=== PATIENT | female | born 1955 | race Caucasian/White ===

== ENCOUNTER 2016-08-14 13:04 | Outpatient (CLI) | payer MEDICARE, MEDICAID | END 2016-08-14 13:05 | disposition home or self-care (01) | DX: I10 Essential (primary) hypertension (principal); K59.00 Constipation, unspecified ==

== ENCOUNTER 2016-08-18 12:59 | Outpatient (CLI) | payer MEDICARE, MEDICAID | END 2016-08-18 13:00 | disposition home or self-care (01) | DX: Z12.11 Encounter for screening for malignant neoplasm of colon (principal) ==

== ENCOUNTER 2016-09-12 11:17 | Outpatient (CLI) | payer MEDICARE, MEDICAID | END 2016-09-12 11:18 | disposition home or self-care (01) | DX: R06.02 Shortness of breath (principal); R06.2 Wheezing; R05 Cough; R09.89 Other specified symptoms and signs involving the circulatory and respiratory systems ==

== ENCOUNTER 2016-09-25 13:29 | Outpatient (CLI) | payer MEDICARE, MEDICAID | END 2016-09-25 13:30 | disposition home or self-care (01) | DX: E04.2 Nontoxic multinodular goiter (principal) ==

== ENCOUNTER 2016-09-25 14:20 | Outpatient (CLI) | payer MEDICARE, MEDICAID | END 2016-09-25 14:21 | disposition home or self-care (01) | DX: Z12.31 Encounter for screening mammogram for malignant neoplasm of breast (principal); Z80.3 Family history of malignant neoplasm of breast ==

== ENCOUNTER 2017-03-08 17:05 | Emergency (ER) | payer MEDICARE, MEDICAID ==
[2017-03-08] MEDS ORDERED: HYDROcod/ACETAM 5/325 MG TABLET PO STA (17:39)
--- NOTE | 2017-03-08 17:41 | ED Physician Documentation ---
PD HPI ABD PAIN - Stated complaint Stated Complaint: ABD PAIN, L ARM PAIN - Chief complaint Chief Complaint: Abd Pain - History obtained from History obtained from: Patient, Family - History of Present Illness Timing - onset: Other (61-year-old woman referred from clinic for complaints of several months worth of left arm pain located in the left bicep without specific trauma, hurts to raise her arms. Also upper abdominal pain for several weeks, without specific pattern, does not seem to be related to eating. It does not radiate. She has been nauseous at times with it. No changes in bowel movements. 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 - Present Medications Home Medications: Ambulatory Orders Medication Instructions Recorded Confirmed Levothyroxine [Synthroid] 25 mcg PO QDAC 09/11/16 Lisinopril 10 mg PO DAILY 09/11/16 - Allergies Allergies/Adverse Reactions: Allergies Allergy/AdvReac Type Severity Reaction Status Date / Time No Known Drug Allergies Allergy Verified 03/08/17 17:23 - Social History Does the pt smoke?: Yes Smoking Status: Current every day smoker Does the pt drink ETOH?: Yes Does the pt have substance abuse?: No - Immunizations Immunizations are current?: Yes PD ED PE NORMAL - Vitals Vital signs reviewed: Yes - General General: Alert and oriented X 3, No acute distress - HEENT HEENT: PERRL, EOMI - Neck Neck: Supple, no meningeal sign, No bony TTP - Cardiac Cardiac: RRR, No murmur - Respiratory Respiratory: No respiratory distress, Clear bilaterally - Abdomen Abdomen: Other (Mild upper abdominal tenderness that does not lateralize, negative Vidal sign, no surgical signs.) - Back Back: No CVA TTP, No spinal TTP - Derm Derm: Normal color, Warm and dry - Extremities Extremities: Other (Left arm and bicep are nontender, full range of motion, normal pulses.) - Neuro Neuro: Alert and oriented X 3, Normal speech - Psych Psych: Normal mood, Normal affect Results - Vitals Vitals: Vital Signs - 24 hr 03/08/17 17:15 Temperature 37.0 C Heart Rate 74 Respiratory 20 Rate Blood Pressure 192/95 H O2 Saturation 94 Oxygen O2 Source Room air - Labs Labs: Laboratory Tests 03/08/17 03/08/17 03/08/17 17:52 17:52 18:32 WBC 9.5 RBC 5.25 Hgb 16.4 H Hct 48.5 H MCV 92.4 MCH 31.3 H MCHC 33.8 RDW 13.7 Plt Count 289 MPV 8.3 Neut # 5.6 Lymph # 2.7 [place] # 0.8 Eos # 0.3 Baso # 0.1 Absolute Nucleated RBC 0.02 Nucleated RBCs 0.2 Sodium 139 Potassium 3.8 Chloride 103 Carbon Dioxide 29 Anion Gap 7.0 BUN 10 Creatinine 0.7 Estimated GFR (MDRD) 86 L Glucose 98 Calcium 9.3 Total Bilirubin 0.3 AST 14 ALT 15 Alkaline Phosphatase 75 Total Protein 7.8 Albumin 4.2 Globulin 3.6 Albumin/Globulin Ratio 1.2 Lipase 28 Urine Color YELLOW Urine Clarity CLEAR Urine pH 7.0 Ur Specific [place] 1.010 Urine Protein NEGATIVE Urine Glucose (UA) NEGATIVE Urine Ketones NEGATIVE Urine Occult Blood NEGATIVE Urine Nitrite NEGATIVE Urine Bilirubin NEGATIVE Urine Urobilinogen 0.2 (NORMAL) Ur Leukocyte Esterase NEGATIVE Ur Microscopic Review NOT INDICATED Urine Culture Comments NOT INDICATED - Rads (name of study) LUE duplex Radiology: Prelim report reviewed CT A/P Radiology: EMP read contemporaneously (4.5cm AAA) PD MEDICAL DECISION MAKING - ED course ED course: 61-year-old woman presents referred by her doctor's office for chronic complaints of leftArm pain and abdominal pain. Labs are unremarkable. She is found to have a stable 4.5 cm abdominal aortic aneurysm and follow-up was advised. Departure - Departure Disposition: 01 Home, Self Care Clinical Impression: Left upper arm pain Abdominal pain Qualifiers: Abdominal location: generalized Qualified Code(s): R10.84 - Generalized abdominal pain AAA (abdominal aortic aneurysm) Qualifiers: Presence of rupture: without rupture Qualified Code(s): I71.4 - Abdominal aortic aneurysm, without rupture Condition: Good Record reviewed to determine appropriate education?: Yes Instructions: ED Aneurysm Abdominal Aortic Stable, Abdominal Pain Comments: Call your physician's office tomorrow for blood pressure recheck and likely referral to a vascular surgeon for your abdominal aortic aneurysm. Your blood pressure was elevated today on check into the emergency department. This does not mean that you have hypertension, it is a common phenomenon to come to the emergency department and have elevated blood pressure. I recommend that she see her primary care physician within the week to have it rechecked when you are feeling better.
[2017-03-08] MEDS ORDERED: HYDROcod/ACETAM 5/325 MG TABLET ONE (17:53)
[2017-03-08 18:00] LABS: BASOPHILS # (AUTO) 0.1 10^3/uL (0.0-0.1); BASOPHILS % (AUTO) 1.2 %; EOSINOPHILS # (AUTO) 0.3 10^3/uL (0.0-0.7); EOSINOPHILS % (AUTO) 2.7 %; HCT - HEMATOCRIT 48.5 % (37.0-47.0); HGB - HEMOGLOBIN 16.4 g/dL (12.0-16.0); LYMPHOCYTES # (AUTO) 2.7 10^3/uL (1.5-3.5); LYMPHOCYTES % (AUTO) 28.7 %; MEAN CORPUSCULAR HEMOGLOBIN 31.3 pg (27.0-31.0); MEAN CORPUSCULAR HGB CONC 33.8 g/dL (32.0-36.0); MEAN CORPUSCULAR VOLUME 92.4 fL (81.0-99.0); MEAN PLATELET VOLUME 8.3 fL (7.9-10.8); MONOCYTES # (AUTO) 0.8 10^3/uL (0.0-1.0); MONOCYTES % (AUTO) 8.5 %; NEUTROPHILS # (AUTO) 5.6 10^3/uL (1.5-6.6); NEUTROPHILS % (AUTO) 58.9 %; NUCLEATED RED BLOOD CELLS AUTO 0.2 /100WBC; RED BLOOD COUNT 5.25 10^6/uL (4.20-5.40); RED CELL DISTRIBUTION WIDTH 13.7 % (12.0-15.0); UNCORRECTED WHITE BLOOD COUNT 9.5 x10^3/uL; WHITE BLOOD COUNT 9.5 x10^3/uL (4.8-10.8)
[2017-03-08 18:13] LABS: ALBUMIN/GLOBULIN RATIO 1.2 (1.0-2.2); BILIRUBIN,TOTAL 0.3 mg/dL (0.2-1.0); CALCIUM 9.3 mg/dL (8.5-10.3); CREATININE 0.7 mg/dL (0.4-1.0); POTASSIUM 3.8 mmol/L (3.5-5.0); TOTAL PROTEIN 7.8 g/dL (6.7-8.2)
[2017-03-08] MEDS ORDERED: IOPAMIDOL-300 100 ML VIAL IVP ONE (18:54)
[2017-03-08 18:59] LABS: BILIRUBIN,URINE NEGATIVE (NEGATIVE)
[2017-03-08 19:00] LABS: UA CHARGE (STRIP ONLY) YES; UR CULTURE IF IND NOT INDICATED
--- NOTE | 2017-03-08 19:12 | CT Preliminary Report ---
Exam: CT Abdomen/Pelvis W/ IMPRESSION: 1. No definite acute disease. 2. Distal abdominal aortic aneurysm measuring 4.5 cm. 3. Splenic varices, of uncertain significance. Number for minimal diverticulosis. [facility] SITE ID: [id number]
--- NOTE | 2017-03-08 19:14 | CT Report ---
EXAM: CT ABDOMEN AND PELVIS EXAM DATE: 03/08/2017 06:57 PM. CLINICAL HISTORY: Upper abdominal pain. COMPARISONS: None. TECHNIQUE: Routine helical CT imaging was performed through the abdomen and pelvis. IV contrast: 100 cc Isovue-300. Enteric contrast: No. Reconstructions: Coronal and sagittal. In accordance with CT protocol optimization, one or more of the following dose reduction techniques w ere utilized for this exam: automated exposure control, adjustment of mA and/or KV based on patient s ize, or use of iterative reconstructive technique. FINDINGS: Lung Bases: Unremarkable. Liver: Normal. No masses. Gallbladder/Bile Ducts: Unremarkable. Spleen: Normal. Splenic varices. Pancreas: Normal. Adrenal Glands: Normal. Kidneys: Normal. No masses or hydronephrosis. Peritoneal Cavity/Bowel: Minimal colonic diverticulosis. No free fluid, free air or adenopathy. No ma sses or acute inflammatory process. The appendix is well visualized and normal. Pelvic Organs: Decompressed urinary bladder. Absent uterus. Vasculature: Distal abdominal aortic aneurysm measuring 4.5 cm in maximum diameter and extending over about 8 cm in length, infrarenal and not involving the bifurcation. No evidence of rupture or dissec tion. Otherwise unremarkable. Bones: No significant abnormality. Other: None. IMPRESSION: 1. No definite acute disease. 2. Distal abdominal aortic aneurysm measuring 4.5 cm. 3. Splenic varices, of uncertain significance. Number for minimal diverticulosis. [facility] Referring Provider Line: [phone] SITE ID: [id number]
--- NOTE | 2017-03-08 19:47 | Ultrasound Preliminary Report ---
Exam: US Duplex Ext Veins Left IMPRESSION: No evidence for deep vein thrombosis. [facility] SITE ID: [id number]
--- NOTE | 2017-03-08 19:49 | Ultrasound Report ---
EXAM: LEFT UPPER EXTREMITY VENOUS ULTRASOUND EXAM DATE: 03/08/2017 07:34 PM. CLINICAL HISTORY: L arm pain. COMPARISON: None. TECHNIQUE: Real-time sonographic vascular imaging was performed by the garage hand through the upper extremity utilizing both color-flow and Doppler spectral analysis. Multiple shipping services sales representative static el ges were saved for review. FINDINGS: Internal Jugular Vein (IJV): Normal. Subclavian Vein (SCV): Normal. Axillary Vein : Normal. Cephalic Vein (superficial vein): Normal. Basilic Vein (superficial vein): Normal. Brachial Vein: Normal. Contralateral Side: Subclavian Vein: Normal. Other: Vessels are difficult to compress secondary to body habitus. IMPRESSION: No evidence for deep vein thrombosis. [facility] Referring Provider Line: [phone] SITE ID: [id number]
[2017-03-08 20:09] VITALS: BP 158/91
== END 2017-03-08 20:09 | disposition home or self-care (01) ==
LOC: ED 17:05
DX: R10.84 Generalized abdominal pain (principal); M79.602 Pain in left arm; I71.4 Abdominal aortic aneurysm, without rupture; I10 Essential (primary) hypertension; E78.00 Pure hypercholesterolemia, unspecified; F17.200 Nicotine dependence, unspecified, uncomplicated
CPT/HCPCS: 36415; 74177; 80053; 81003; 83690; 85025; 93971; 99283; 99284; A9270; Q9967; 81001; 87086

== ENCOUNTER 2017-05-03 13:10 | Outpatient (CLI) | payer MEDICARE, MEDICAID ==
[2017-05-03 20:28] LABS: THYROID STIMULATING HORMONE 6.71 uIU/mL (0.34-5.60)
== END 2017-05-03 13:11 | disposition home or self-care (01) ==
LOC: LAB.N 13:10
PROVIDERS: ATTEND Nurse Practitioner Gerontology
DX: E03.9 Hypothyroidism, unspecified (principal)
CPT/HCPCS: 36415; 84439; 84443

== ENCOUNTER 2017-05-06 11:36 | Outpatient (CLI) | payer MEDICARE, MEDICAID ==
--- NOTE | 2017-05-07 07:49 | Ultrasound Report ---
EXAM: THYROID ULTRASOUND EXAM DATE: 05/06/2017 12:07 PM. CLINICAL HISTORY: Multiple thyroid nodules, hypothyroidism. COMPARISON: 09/25/2016. TECHNIQUE: Real-time sonographic imaging of the thyroid was performed by the insurance sales associate. Multiple re presentative static images were saved for review. FINDINGS: THYROID GLAND: Right Lobe: 6.4 x 2.7 x 2 cm, volume 18.4 cc. Heterogeneous background echotexture. Right Lobe Nodules: There are again multiple ill-defined echoic nodules, the previously reported thyr oid nodule in the midpole measured 1 x 0.7 x 0.8 cm, previously 1 x 0.8 x 0.8 cm. Left Lobe: 5.6 x 2.3 x 2.3 cm, volume 15.4 cc. Heterogeneous background echotexture. Left Lobe Nodules: Multiple ill-defined small echoic nodules again noted, the previously measured thy roid nodule in the lower pole of 0.7 x 0.7 x 0.6 cm, currently measured 0.4 x 0.3 x 0.3 cm. Isthmus: 0.35 cm AP. Isthmic Nodules: In the right paramidline area, there is a solid vascular hypoechoic nodule, 1.8 x 0. 5 x 1.3 cm, previously 1.8 x 0.6 x 1.5 cm. LYMPH NODES: No adenopathy demonstrated in the central or lateral compartment. IMPRESSION: Minimal interval change of the diffuse heterogeneous echogenicity of the thyroid gland with multiple solid nodules, the dominant thyroid nodule located in evaluation as has a sonographic feature of low suspicion for malignancy; given the vascularity and maximal dimension of 1.8 cm of the dominant nodul e, ultrasound-guided fine-needle aspiration for tissue diagnosis is considered. Management recommendations are based on 2015 [place] [employer] Management Guidelines for A dult Patients with Thyroid Nodules and Differentiated Thyroid Cancer. [facility] Referring Provider Line: [phone] SITE ID: [id number]
== END 2017-05-06 11:37 | disposition home or self-care (01) ==
LOC: DI 11:36
PROVIDERS: ATTEND Nurse Practitioner Gerontology
DX: E04.2 Nontoxic multinodular goiter (principal); E03.9 Hypothyroidism, unspecified
CPT/HCPCS: 76536

== ENCOUNTER 2017-06-25 13:20 | Outpatient (CLI) | payer MEDICARE, MEDICAID ==
[2017-06-25] MEDS ORDERED: BUFFERED LIDOCAINE 10 ML SYRINGE IU ONE (16:51)
--- NOTE | 2017-06-26 10:51 | Ultrasound Report ---
THYROID FNA UNDER ULTRASOUND GUIDANCE: 06/25/2017 HISTORY: Multinodular gland with dominant 1.7 x 1.5 x 0.5 cm solid vascular nodule in the thyroid is thmus. Informed consent is obtained from the patient. Using ultrasound guidance, the dominant isthmus thyro id nodule is marked. Using sterile technique and 1% lidocaine as a local anesthetic, a 25-gauge need le is used to obtained four separate FNA samples from the nodule. Ultrasound documents the presence of the needle within the nodule on all four passes. The patient tolerated the procedure well. IMPRESSION: SUCCESSFUL THYROID FNA USING ULTRASOUND GUIDANCE. JOB #: [id number] EXT JOB #:[id number]
[2017-06-28 20:56] VITALS: BP 164/94
== END 2017-06-25 13:21 | disposition home or self-care (01) ==
LOC: DI 13:20
PROVIDERS: ATTEND Nurse Practitioner Gerontology
DX: E04.2 Nontoxic multinodular goiter (principal)
CPT/HCPCS: 10022; 76942

== ENCOUNTER 2017-07-31 14:00 | Outpatient (CLI) | payer MEDICARE, MEDICAID | END 2017-07-31 14:01 | disposition home or self-care (01) | LOC: LAB.N 14:00 | PROVIDERS: ATTEND Nurse Practitioner Gerontology | DX: E03.9 Hypothyroidism, unspecified (principal) | CPT/HCPCS: 36415; 84443 ==

== ENCOUNTER 2017-08-24 11:17 | Outpatient (CLI) | payer MEDICARE, MEDICAID ==
--- NOTE | 2017-08-24 14:29 | Ultrasound Report ---
DATE OF SERVICE: 08/24/2017 LIMITED RETROPERITONEAL ULTRASOUND: 08/24/2017 CLINICAL INDICATION: Aneurysm followup. COMPARISON: CT of 03/08/2017. TECHNIQUE: Real-time sonographic imaging was performed by the ground host/hostess through the aorta. Multiple sales representative printing static images were saved for review. FINDINGS: The abdominal aorta measures 2.7 cm proximally, and 2.7 cm in the mid portion. Distal aneurysmal dilatation is again seen, now measuring 4.8 x 4.0 cm ( previously 4.5 x 4.0 cm). The iliacs are normal in caliber. No free fluid is present. IMPRESSION: NO SIGNIFICANT INTERVAL CHANGE IN THE ABDOMINAL AORTIC ANEURYSM. TD: 08/24/2017 14:28 SUMAN
== END 2017-08-24 11:18 | disposition home or self-care (01) ==
LOC: DI 11:17
PROVIDERS: ATTEND Nurse Practitioner Gerontology
DX: I71.4 Abdominal aortic aneurysm, without rupture (principal)
CPT/HCPCS: 76775

== ENCOUNTER 2017-12-14 09:07 | Outpatient (CLI) | payer MEDICARE, MEDICAID ==
--- NOTE | 2017-12-14 12:39 | MRI Report ---
EXAM: LEFT KNEE MRI WITHOUT CONTRAST EXAM DATE: 12/14/2017 09:53 AM. CLINICAL HISTORY: LEFT KNEE MEDIAL MENISCUS TEAR. COMPARISON: Radiograph 12/06/2017. TECHNIQUE: Multiplanar, multisequence T1-weighted and fluid-sensitive sequences of the knee without c ontrast. Other: None. FINDINGS: Cruciate ligaments: The anterior and posterior cruciate ligaments appear intact. Medial meniscus: Intact. No tear is identified. Lateral meniscus: Intact. No tear is identified. Collateral limits: The medial and fibular collateral ligament appear intact. Bones and articular surfaces: Areas of moderate cartilage thinning and fissuring in the patellofemora l compartment. Mild cartilage thinning and surface irregularity in the medial compartment. Moderate-s ized joint effusion. Tiny marginal osteophyte formation at the medial and patellofemoral compartments . Extensor mechanism: The patellar tendon and quadriceps insertion appear intact. IMPRESSION: 1. Mild medial and patellofemoral compartment osteoarthritis. 2. Moderate size joint effusion. [facility] Referring Provider Line: [phone] SITE ID: [id number]
[2017-12-14] MEDS ORDERED: GADOBUTROL 7.5 MMOL/7.5 ML VIAL IVP ONE (13:19)
== END 2017-12-14 09:08 | disposition home or self-care (01) ==
LOC: DI 09:07
PROVIDERS: ATTEND Orthopaedic Surgery
DX: M17.12 Unilateral primary osteoarthritis, left knee (principal); M25.462 Effusion, left knee

== ENCOUNTER 2018-01-29 11:10 | Day surgery (SDC) | payer MEDICARE, MEDICAID ==
[~2018-01-29 11:10] MED LIST: LIDO GARGLE 30 ML BOTTLE ONE; LIDO GARGLE 30 ML BOTTLE PO ONE
[2018-01-29] MEDS ORDERED: LACTATED RINGERS 1,000 ML IV ONE ×4 (11:33→13:00)
[2018-01-29] MEDS ORDERED: MIDAZOLAM 2 MG/2 ML VIAL IVP ONE (12:27)
[2018-01-29] MEDS ORDERED: GLUCAGON 1 MG/ML VIAL IM ONE (12:27)
[2018-01-29] MEDS ORDERED: fentaNYL 250 MCG/5 ML VIAL IVP ONE (12:27)
[2018-01-29] MEDS ORDERED: LIDO GARGLE 30 ML BOTTLE PO ONE (12:32)
[2018-01-29] MEDS ORDERED: WATER FOR INJECTION,STERILE 10 ML ONE (13:06)
[2018-01-29 13:43] VITALS: BP 126/58
== END 2018-01-29 11:11 | disposition home or self-care (01) ==
LOC: SDS 11:10
PROVIDERS: ATTEND Surgery
PROC: 0DB28ZX Excision of Middle Esophagus, Via Natural or Artificial Opening Endoscopic, Diagnostic (ICD-10-PCS; 2018-01-29)
PROC: 0DBM8ZZ Excision of Descending Colon, Via Natural or Artificial Opening Endoscopic (ICD-10-PCS; 2018-01-29)
PROC: 0DBL8ZZ Excision of Transverse Colon, Via Natural or Artificial Opening Endoscopic (ICD-10-PCS; 2018-01-29)
PROC: 0DBN8ZZ Excision of Sigmoid Colon, Via Natural or Artificial Opening Endoscopic (ICD-10-PCS; 2018-01-29)
PROC: 0DB98ZX Excision of Duodenum, Via Natural or Artificial Opening Endoscopic, Diagnostic (ICD-10-PCS; principal; 2018-01-29 12:30)
PROC: 0DB78ZX Excision of Stomach, Pylorus, Via Natural or Artificial Opening Endoscopic, Diagnostic (ICD-10-PCS; 2018-01-29 12:30)
DX: R19.5 Other fecal abnormalities (principal); R10.10 Upper abdominal pain, unspecified; R19.05 Periumbilic swelling, mass or lump; K59.00 Constipation, unspecified; K25.9 Gastric ulcer, unspecified as acute or chronic, without hemorrhage or perforation; K22.9 Disease of esophagus, unspecified; K31.9 Disease of stomach and duodenum, unspecified; D12.3 Benign neoplasm of transverse colon; K63.5 Polyp of colon; K57.30 Diverticulosis of large intestine without perforation or abscess without bleeding; K64.4 Residual hemorrhoidal skin tags; I10 Essential (primary) hypertension; F17.290 Nicotine dependence, other tobacco product, uncomplicated
CPT/HCPCS: 43239; 45384; A9270; J3010; J7120

== ENCOUNTER 2018-02-14 09:34 | Outpatient (CLI) | payer MEDICARE, MEDICAID ==
--- NOTE | 2018-02-14 09:56 | XRAY Report ---
Procedure Date: 02/14/2018 Accession Number: [id number] / [id number] Procedure: XRN - Chest 2 View X-Ray CPT Code: 44446 FULL RESULT: EXAM: Chest 2 View X-Ray DATE: 02/14/2018 9:48 AM CLINICAL HISTORY: SOB COMPARISON: 09/12/2016. TECHNIQUE: 2 views. FINDINGS: Interval increase in bibasilar hazy opacification without lobar consolidation or significant pleural effusion on the lateral radiograph. This likely represents a component of edema. Question underlying interstitial basilar predominant pulmonary disease. Evidence of prior granulomatous disease is again seen. The cardiomediastinal silhouette is stable, nonenlarged. No pneumothorax or pleural effusion IMPRESSION: Increased bibasilar opacities as described. These are felt to represent interval development of mild interstitial edema, possible background of chronic interstitial lung disease. [facility]
== END 2018-02-14 09:35 | disposition home or self-care (01) ==
LOC: DI.N 09:34
PROVIDERS: ATTEND Nurse Practitioner Gerontology
DX: R91.8 Other nonspecific abnormal finding of lung field (principal)
CPT/HCPCS: 36415; 71046; 85379

== ENCOUNTER 2018-02-14 10:10 | Outpatient (CLI) | payer MEDICARE, MEDICAID | END 2018-02-14 10:11 | LOC: LAB.N 10:10 | PROVIDERS: ATTEND Nurse Practitioner Gerontology | DX: R06.02 Shortness of breath (principal) | CPT/HCPCS: 36415; 85379 ==

== ENCOUNTER 2018-02-15 15:58 | Outpatient (CLI) | payer MEDICARE, MEDICAID | END 2018-02-15 15:59 | disposition critical access hospital (66) | LOC: EMS 15:58 | PROVIDERS: ATTEND Surgery | DX: R06.00 Dyspnea, unspecified (principal) | CPT/HCPCS: A0425; A0427 ==

== ENCOUNTER 2018-02-15 16:20 | Inpatient (IN) | payer MEDICARE, MEDICAID ==
[2018-02-15] MEDS ORDERED: ALBUTEROL NEB 2.5 MG/3 ML INH STA (16:54)
[2018-02-15] MEDS ORDERED: AZITHROMYCIN INJ 500 MG in SODIUM CHLORIDE 0.9% 250 ML IV STA (16:54)
[2018-02-15] MEDS ORDERED: cefTRIAXone 1 GM in SODIUM CHLORIDE 0.9% MINIBAG 100 ML IV STA (16:54)
--- NOTE | 2018-02-15 16:59 | ED Physician Documentation ---
PD HPI DYSPNEA - Stated complaint Stated Complaint: SOA - Chief complaint Chief Complaint: Resp - History obtained from History obtained from: Patient, EMS - History of Present Illness Timing - onset: Other (This is a 62-year-old woman without a formal diagnosis of COPD but has been mentioned by physicians in the past. She has been sick for about 10 days with productive cough green sputum and shortness of breath which has been progressive despite being on steroids and antibiotics. She was on a prednisone taper which was upped again today yesterday and she has been on Zithromax since yesterday and also an inhaled steroid and Ventolin. 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 - Present Medications Home Medications: Ambulatory Orders Medication Instructions Recorded Confirmed Acetaminophen [Tylenol] 325 mg PO TID PRN 01/28/18 01/29/18 Levothyroxine Sodium 50 mcg PO DAILY 01/28/18 01/29/18 Lisinopril 20 mg PO DAILY 01/28/18 01/29/18 Nystatin 100,000 units TOP DAILY 01/28/18 01/29/18 Albuterol Sulf [Ventolin Hfa 02/15/18 Inhaler] Azithromycin 02/15/18 predniSONE [Prednisone] 02/15/18 - Allergies Allergies/Adverse Reactions: Allergies Allergy/AdvReac Type Severity Reaction Status Date / Time methylprednisolone Allergy critical Verified 02/15/18 16:40 - Social History Does the pt smoke?: Yes Smoking Status: Former smoker Does the pt drink ETOH?: Yes Does the pt have substance abuse?: No - Family History Family history: reports: Non contributory - Immunizations Immunizations are current?: Yes PD ED PE NORMAL - Vitals Vital signs reviewed: Yes - General General: Alert and oriented X 3, Other (Labored pursed lip breathing) - HEENT HEENT: PERRL, EOMI - Neck Neck: Supple, no meningeal sign, No bony TTP - Cardiac Cardiac: RRR, No murmur - Respiratory Respiratory: Other (Labored pursed lip breathing and tachypnea, I took her off the oxygen in the room and she went down to 88% on room air. She is diffusely wheezy and rhonchorous throughout.) - Abdomen Abdomen: Soft, Non tender - Back Back: No CVA TTP, No spinal TTP - Derm Derm: Normal color, Warm and dry - Extremities Extremities: No edema, No calf tenderness / cord - Neuro Neuro: Alert and oriented X 3, Normal speech Results - Vitals Vitals: Vital Signs - 24 hr 02/15/18 02/15/18 16:21 16:30 Heart Rate 96 98 Respiratory 20 20 Rate Blood Pressure 168/116 H 164/89 H O2 Saturation 93 93 Oxygen O2 Source Nasal cannula PD MEDICAL DECISION MAKING - ED course ED course: 8-year-old woman with apparent COPD exacerbation, chest x-ray from yesterday reviewed, mild bibasilar opacities without focal pneumonia. She is hypoxemic here and will need to be admitted for further evaluation and treatment. She received Solu-Medrol prior to arrival and a DuoNeb in route. This is despite being listed as having an allergy to Solu-Medrol, but she had no ill effects. Call the hospitalist for admission at 4:58 PM. - Sepsis Event Vital Signs: Vital Signs - 24 hr 02/15/18 02/15/18 16:21 16:30 Heart Rate 96 98 Respiratory 20 20 Rate Blood Pressure 168/116 H 164/89 H O2 Saturation 93 93 Oxygen O2 Source Nasal cannula Departure - Departure Disposition: 66 [facility] DC/Xfer Clinical Impression: COPD exacerbation, Hypoxemia Condition: Stable
[2018-02-15] MEDS ORDERED: ONDANSETRON ODT 4 MG TABLET TL PRN (17:14)
[2018-02-15] MEDS ORDERED: ONDANSETRON 4 MG/2 ML VIAL IVP PRN (17:14)
[2018-02-15 17:17] LABS: BASOPHILS # (AUTO) 0.1 10^3/uL (0.0-0.1); BASOPHILS % (AUTO) 0.7 %; EOSINOPHILS % (AUTO) 0.2 %; HGB - HEMOGLOBIN 16.5 g/dL (12.0-16.0); LYMPHOCYTES # (AUTO) 0.9 10^3/uL (1.5-3.5); LYMPHOCYTES % (AUTO) 7.3 %; MEAN CORPUSCULAR HEMOGLOBIN 30.9 pg (27.0-31.0); MEAN CORPUSCULAR HGB CONC 33.5 g/dL (32.0-36.0); MEAN PLATELET VOLUME 7.9 fL (7.9-10.8); MONOCYTES # (AUTO) 0.1 10^3/uL (0.0-1.0); MONOCYTES % (AUTO) 1.1 %; NEUTROPHILS # (AUTO) 11.4 10^3/uL (1.5-6.6); NEUTROPHILS % (AUTO) 90.7 %; PLT - PLATELET COUNT 353 10^3/uL (130-450); RED BLOOD COUNT 5.36 10^6/uL (4.20-5.40); RED CELL DISTRIBUTION WIDTH 14.3 % (12.0-15.0); WHITE BLOOD COUNT 12.5 x10^3/uL (4.8-10.8)
[2018-02-15] MEDS ORDERED: NYSTATIN CREAM 15 GM TUBE TOP PRN (17:18)
[2018-02-15 17:29] LABS: ALBUMIN 3.9 g/dL (3.2-5.5); ALBUMIN/GLOBULIN RATIO 0.9 (1.0-2.2); BILIRUBIN,TOTAL 0.6 mg/dL (0.2-1.0); CALCIUM 9.4 mg/dL (8.5-10.3); CREATININE 0.6 mg/dL (0.4-1.0); TOTAL PROTEIN 8.2 g/dL (6.7-8.2)
[2018-02-15] MEDS: methylPREDNISolone SUCCINATE 125 MG/2 ML VIAL IVP SCH ×2 (18:24→23:42)
[2018-02-15] MEDS: SODIUM CHLORIDE FLUSH 0.9% 10 ML SYRINGE IVP PRN ×2 (18:24→19:29)
[2018-02-15] MEDS: oxyCODONE 5 MG TABLET PO PRN (18:29)
[2018-02-15] MEDS ORDERED: SODIUM CHLORIDE 0.9% 500 ML IV ONE (20:56)
[2018-02-15 21:26] LABS: ABG HCO3 22.3 mmol/L (22.0-26.0); ABG PCO2 32 mmHg (34-45); ABG PH 7.46 (7.35-7.45); ABG PO2 118 mmHg (80-100)
[2018-02-15 21:27] LABS: ABG BASE EXCESS -0.6 mmol/L (-2.0-3.0); ABG OXYGEN SATURATION 99 % (94-98); ABG TCO2 23.2 MMOL/L (21.0-29.0); ALLEN TEST POSITIVE
[2018-02-15] MEDS: IPRATROPIUM/ALBUTEROL 3 ML NEB INH SCH (22:10)
[2018-02-15] MEDS: BUDESONIDE 0.5 MG/2 ML NEB INH SCH (22:10)
[2018-02-15] MEDS: SODIUM CHLORIDE FLUSH 0.9% 10 ML SYRINGE IVP SCH (23:42)
[2018-02-15] MEDS: ACETAMINOPHEN 325 MG TABLET PO PRN (23:51)
[2018-02-16] MEDS ORDERED: IOPAMIDOL-300 100 ML VIAL ONE (01:15)
[2018-02-16] MEDS ORDERED: IOPAMIDOL-300 100 ML VIAL IVP ONE (01:21)
[2018-02-16] MEDS ORDERED: SODIUM CHLORIDE 0.9% 1,000 ML IV SCH (02:00)
--- NOTE | 2018-02-16 02:00 | CT Report ---
Procedure Date: 02/16/2018 Accession Number: [id number] / [id number] Procedure: CT - Chest Angio (PE) CPT Code: FULL RESULT: EXAM: CT ANGIOGRAM CHEST EXAM DATE: 02/16/2018 01:41 AM. CLINICAL HISTORY: Acute respiratory failure with hypoxia. COMPARISON: None. TECHNIQUE: Routine helical imaging was performed through the chest in the pulmonary arterial phase. IV Contrast: ISOVUE 300 80mL. Reconstructions: Coronal 3-D MIP reconstructions.Sagittal and coronal. In accordance with CT protocol optimization, one or more of the following dose reduction techniques were utilized for this exam: automated exposure control, adjustment of mA and/or KV based on patient size, or use of iterative reconstructive technique. FINDINGS: Pulmonary Arteries: Diagnostic quality: Adequate through the segmental arteries. No evidence for acute or chronic pulmonary emboli. No evidence of right heart strain. Lungs/Pleura: Pulmonary vascular congestion. Possible subtle interstitial edema. Patchy bilateral atelectasis or infiltrate. No pleural effusion seen. No pneumothorax. Mediastinum: Heart size is normal. Normal sized mediastinal lymph nodes. Thoracic Aorta: Mild atherosclerosis. No aneurysm or dissection. Upper Abdomen: Unremarkable. Other: None. IMPRESSION: 1. No pulmonary emboli seen. 2. Pulmonary vascular congestion and possible subtle interstitial edema or volume overload. 3. Patchy bilateral atelectasis or infiltrate. [facility]
[2018-02-16] MEDS ORDERED: FUROSEMIDE 40 MG/4 ML VIAL IVP STA (02:53)
[2018-02-16] MEDS: methylPREDNISolone SUCCINATE 125 MG/2 ML VIAL IVP SCH ×4 (06:12→23:33)
[2018-02-16] MEDS: LEVOTHYROXINE 25 MCG TABLET PO SCH (06:12)
[2018-02-16] MEDS: SODIUM CHLORIDE FLUSH 0.9% 10 ML SYRINGE IVP PRN (06:12)
[2018-02-16] MEDS: IPRATROPIUM/ALBUTEROL 3 ML NEB INH SCH ×4 (07:12→20:23)
[2018-02-16] MEDS: BUDESONIDE 0.5 MG/2 ML NEB INH SCH ×2 (07:12→20:23)
--- NOTE | 2018-02-16 08:01 | HISTORY & PHYSICAL EXAMINATION ---
Chief Complaint - Chief Complaint Chief Complaint: Cough and SOB History of Present Illness - Admitted From Admitted From:: ER/Home - History Obtained From Records Reviewed: Centricity History obtained from: Patient Exam Limitations: pt extremely SOB during, pursed lip breathing - History of Present Illness HPI Comment/Other: Patient was interviewed and examined on arrival to floor from ER on 02/15/18. This is a late entry H&P. Ms. Lopez is a 62 y/o F who has been experiencing symptoms of a URI for approx. the past 10 days. It came on after her daughter (whom she lives with) became ill, shortly after the patient began experiencing a productive cough with green sputum, sinus congestion, and SOB. She denied any fever, chills, or malaise. She was seen in the office by her PCP who prescribed a steroid course and levafloxacin. After the second dose of levofloxacin she developed swelling and redness to her LUE (started around knee and moved up toward thigh), which scared her so she stopped taking it and returned to her PCP. The rash resolved after stopping the levafloxacin. At that time they switched her to azithromycin , but her symptoms were still not improving so they increased her steroid dose and gave her a duoneb treatment. Her PCP also completed a CXR which did not show any infiltrates. They asked her to return the next day if she was still not improving. Today (02/15/18) she returned to the PCP acutely SOB, wheezing, and using accessory muscles at which point EMS was called to transport her to the ED. In the ER she received multiple duoneb treatments, but wheezing and SOB remained unimproved. She was found to have a mildly elevated WBC of 12.5 and a lactate of 2.1. She was given a dose of IV ceftriaxone and placed on supplemental oxygen which improved her Spo2 and was referred for inpatient admission. On admission to the floor, she is still very SOB with speaking, unable to complete sentences, with increased WOB noted during speech. She is maintaining spo2 >90% on 4L simple mask. However, when she removes the mask when coughing or to drink water, she desaturates to 87-88%. When pausing during speech, she is pursed lip breathing, and mildly tachypneic (mid 20s). She has diffuse, expiratory wheezing throughout lung harrison with diminished breath sounds in the bases. She states her breathing feels improved from earlier after receiving another breathing treatment on arrival to the unit. She also becomes quite tachycardic during speech, up to the 100-110s. She is a long-time heavy smoker, but recently quit (approx 2 weeks ago, just prior to becoming ill) in response to concern that it may be negatively affecting her 4 year old grandchild who she lives with. History - Past Medical History Cardiovascular: reports: Hypertension, High cholesterol, Other (Umbilical AAA which she has measured [id number] by her PCP, stable without changes on last 2 checks) Respiratory: reports: Asthma, COPD (no formal diagnosis, was recently referred by PCP to semiautomatic stitcher operator for further testing), Shortness of breath (has been SOB with minimal exertion for some time now, which was partly why she decided to quit smoking) Endocrine/Autoimmune: reports: HyPOthyroidism GI: reports: GERD (recently diagnosed and started on omeprazole) : reports: Incontinence Musculoskeletal: reports: Osteoarthritis, Scoliosis, Chronic back pain MRSA Hx?: No - Past Surgical History /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 She has struggled to care for herself since then due to her difficulty to complete repetitive motions (brushing her hair, preparing her food, bathing), so earlier this year she began receiving help via a home health aide that comes each afternoon to assist her with her ADLs. She ambulates without assistance at home, and has been walking 1 mile a couple times a week with her daughter for exercise, but she does often become SOB during. Pt smoked 2.5PPD x 40 years until the of her 4 years ago when she cut back to 1.5PPD, 2 weeks ago she decided to quit after worrying about how smoking is affecting her grandchild who she lives with. - Substance History Use: Uses substance without health or social issues: Tobacco Abuse: Recurrent use of substance despite neg consequences: NONE Dependence: Experiences withdrawal or developed tolerances: Tobacco Tobacco Details: Cigarettes - POLST Patient has POLST: No POLST Status: Full Code (Pt said that she has a lot to live for and is "only 62 years old", she wants to make a lot of changes in her life (starting with quitting smoking), no POLST currently, but would want daughter to make decisions for her if necessary, pt encouraged to fill out POLST before leaving hospital or with PCP in the future) Meds/Allgy - Home Medications Home Medications: Ambulatory Orders Medication Instructions Recorded Confirmed Acetaminophen [Tylenol] 650 mg PO TID PRN 01/28/18 02/15/18 Levothyroxine Sodium 50 mcg PO DAILY 01/28/18 02/15/18 Lisinopril 20 mg PO DAILY 01/28/18 02/15/18 Nystatin 1 applic TOP DAILY PRN 01/28/18 02/15/18 Albuterol Sulf [Ventolin Hfa 2 puffs INH Q6H PRN 02/15/18 02/15/18 Inhaler] Budesonide [Pulmicort Flexhaler] 180 mcg IH BID 02/15/18 02/15/18 Omeprazole [Omeprazole] 40 mg PO DAILY 02/15/18 02/15/18 predniSONE [Prednisone] 40 mg PO .TAPER 02/15/18 02/15/18 - Allergies Allergies/Adverse Reactions: Allergies Allergy/AdvReac Type Severity Reaction Status Date / Time methylprednisolone Allergy critical Verified 02/15/18 16:40 Review of Systems - Constitutional Constitutional: reports: Fatigue. denies: Fever, Chills, Malaise, Weakness, Poor appetite - Eyes Eyes: denies: Pain, Blurred vision, Vision loss - Ears, Nose & Throat Ears, Nose & Throat: denies: Hearing loss, Tinnitus, Vertigo - Cardiovascular Cariovascular: reports: Edema (LEs, wears DANDRE hose at home per PCP recommendation), Exertional dyspnea, Decr. exercise tolerance. denies: Palpitations, Chest pain, Lightheadedness, Syncope - Respiratory Respiratory: reports: Cough, Sputum production (Changes throughout the day, often brown in the morning and yellow/green in the afternoon), Wheezing, SOB at rest, SOB with exertion. denies: Hemoptysis, Orthopnea - Gastrointestinal Gastrointestinal: reports: Other (muscles in abd are sore from coughing). denies: Abdominal pain, Abdominal distention, Constipation, Diarrhea, Change in bowel habits, Nausea, Vomiting - Genitourinary Genitourinary: reports: Incontinence (occasionally when she coughs). denies: Dysuria, Frequency, Urgency - Musculoskeletal Musculoskeletal: reports: Back pain (chronic, at baseline) - Integumentary Integumentary: denies: Rash, Lesions, Dryness - Neurological Neurological: denies: Focal weakness, Headache, Dizziness, Numbness, Incoordination - All Other Systems All Other Systems: reports: Reviewed and negative Exam - Vital Signs Reviewed Vital Signs: Yes Vital Signs: Vital Signs x48h Temp Pulse Pulse Resp BP BP Pulse Ox 02/16/18 07:12 89 16 02/16/18 05:15 36.7 C 80 18 141/76 H 93 02/16/18 00:00 36.4 C L 103 H 20 131/91 H 93 - Physical Exam General Appearance: positive: Moderate distress (pt sitting in bed, alert and oriented, pursed lip breathing, unable to speak in full sentances without pausing due to SOB, but very willing to speak and impressively wanted to talk for almost a full hour despite SOB) Eyes Bilateral: positive: PERRL, EOMI, No scleral icterus ENT: positive: Purulent nasal drainage, Dry mucous membranes Neck: positive: Nml inspection, No JVD, Trachea midline Respiratory: positive: Wheezes (expiratory wheezes throughout lung harrison, diminished in the bases bilaterally. pursed lip breathing.) Cardiovascular: positive: Regular rate & rhythm, No murmur, No gallop, Tachycardia Peripheral Pulses: positive: 1+ Abdomen: positive: Non-tender, No organomegaly, Nml bowel sounds, No distention Skin: positive: Warm, Dry, Other (reddened face with increased WOB and talking) . negative: Cyanosis, Diaphoresis Extremities: positive: Non-tender, Nml appearance, Pedal edema (1+). negative: Calf tenderness Neurologic/Psychiatric: positive: Oriented x3, CN's nml (2-12), Motor nml, Sensation nml, Mood/affect nml Conclusion/Plan - Problem List (1) Acute respiratory failure with hypoxia Conclusion/Plan: Pt does not have a formal diagnosis of COPD, but has had frequent episodes of SOB and bronchitis in the past. Has been told by a doctor that she has emphysema , but has had no testing. She is acutely SOB with wheezing and hypoxia, but improved after multiple duonebs and supplemental oxygen. She has no evidence of pneumonia on CXR at PCP yesterday or today in the ED. COPD exacerbation seems the most likely diagnosis, so we will continue to treat her as such with IV abx , steroids, and duoneb treatments. * Continue IV abx * PRN duoneb treatments * supplemental oxygen * continue steroids (inhaled and IV) * continuous pulse ox monitoring and RT consult * ABG * am labs (2) COPD exacerbation Conclusion/Plan: See above. (3) HTN (hypertension) Conclusion/Plan: History of HTN on multiple medications. Continue home doses while inpatient. (4) Hyperglycemia, drug-induced Conclusion/Plan: Pt denies any history of diabetes, has been on steroid for multiple days now, hyperglycemia on admission likely steroid-induced. * q6h POC glucose testing while inpatient (5) Hypothyroid Conclusion/Plan: PMH of hypothyroidism, restart home medication - Lab Results Lab results reviewed: Yes Fish Bones: 02/18/18 05:36 02/18/18 05:36 Other Lab Results: Laboratory Tests 02/15/18 02/15/18 02/15/18 17:13 17:13 17:13 WBC 12.5 H Hgb 16.5 H Hct 49.3 H Plt Count 353 Sodium 135 Potassium 4.1 Chloride 97 L Anion Gap 12.0 BUN 10 Creatinine 0.6 Glucose 265 H Lactic Acid 2.1 - Diagnostic Imaging Results Diagnostic Imaging Results: positive: Final report reviewed - EKG Results EKG Interpreted Independently: No Core Measures - Anticipated LOS I expect patient to be DC'd or transferred within 96 hours.: Yes - DVT/VTE - Prophylaxis VTE/DVT Device ordered at admit?: Yes VTE/DVT Prophylaxis med ordered at admit?: Yes
[2018-02-16] MEDS: cefTRIAXone 2 GM in SODIUM CHLORIDE 0.9% MINIBAG 100 ML IV SCH (08:25)
[2018-02-16] MEDS: POLYETHYLENE GLYCOL 3350 17 GM PACKET PO SCH (08:27)
[2018-02-16] MEDS: SODIUM CHLORIDE FLUSH 0.9% 10 ML SYRINGE IVP SCH ×4 (08:27→23:33)
[2018-02-16] MEDS: ENOXAPARIN 40 MG/0.4 ML SYRINGE SUBQ SCH (08:37)
[2018-02-16] MEDS ORDERED: LISINOPRIL 20 MG TABLET PO SCH (09:00)
[2018-02-16] MEDS: AZITHROMYCIN INJ 500 MG in SODIUM CHLORIDE 0.9% 250 ML IV SCH (09:17)
[2018-02-16 09:19] LABS: BASOPHILS % (AUTO) 0.1 %; HGB - HEMOGLOBIN 14.7 g/dL (12.0-16.0); LYMPHOCYTES # (AUTO) 0.7 10^3/uL (1.5-3.5); LYMPHOCYTES % (AUTO) 3.1 %; MEAN CORPUSCULAR HEMOGLOBIN 30.2 pg (27.0-31.0); MEAN CORPUSCULAR HGB CONC 32.6 g/dL (32.0-36.0); MEAN CORPUSCULAR VOLUME 92.6 fL (81.0-99.0); MONOCYTES # (AUTO) 0.4 10^3/uL (0.0-1.0); MONOCYTES % (AUTO) 1.8 %; NEUTROPHILS # (AUTO) 22.2 10^3/uL (1.5-6.6); PLT - PLATELET COUNT 319 10^3/uL (130-450); RED BLOOD COUNT 4.86 10^6/uL (4.20-5.40); RED CELL DISTRIBUTION WIDTH 14.1 % (12.0-15.0); WHITE BLOOD COUNT 23.4 x10^3/uL (4.8-10.8)
[2018-02-16 09:29] LABS: CALCIUM 8.9 mg/dL (8.5-10.3); CREATININE 0.7 mg/dL (0.4-1.0)
[2018-02-16 09:51] LABS: PLATELET ESTIMATE, MANUAL NORMAL (130-450,000) (NORMAL); PLATELET MORPHOLOGY NORMAL APPEARANCE (NORMAL); RBC MORPHOLOGY (MULTIPLE) NORMAL APPEARANCE (NORMAL)
--- NOTE | 2018-02-16 10:31 | PROVIDER PROGRESS NOTE ---
Subjective - Prog Note Date Prog Note Date: 02/16/18 Prog Note Time: 10:27 - Subjective Pt reports feeling: Improved Subjective: She is sitting upright in the chair, eating her breakfast. Has a facemask on for oxygen. Cough is loose, moderately frequent. She says that she actually feels better than she did yesterday. She is lamenting the fact that she has a fluid restriction. Overnight, however, she has been developing lactic acidosis. The on-call physician/nocturnal rest postulated that she either had worsening infection and she received extra IV fluids for resuscitation. Her lactic acid went from 2.1-3.4. With the fluid resuscitation he had brought it down to 3.0. This morning her lactic acid is 2.7. But with the fluid resuscitation she has become more short of breath. Worried about pulmonary embolus that we may be missing, he did a CT pulmonary angiogram. She has no evidence of right heart strain, no emboli. But she does have pulmonary vascular congestion with interstitial edema and bilateral atelectasis or infiltrate that is patchy. So he stopped her IV fluids and is been now diuresing her with one lasix dose and fluid restriction. She is not happy about that and tells me she drinks up to 1 to 1.5 liters a day. Current Medications - Current Medications Current Medications: Active Medications Acetaminophen (Tylenol) 650 mg PO Q4HR PRN PRN Reason: Pain 1 to 4 Last Admin: 02/15/18 23:51 Dose: 650 mg Albuterol/Ipratropium (Duoneb) 3 ml INH RTQID [facility] Last Admin: 02/16/18 07:12 Dose: 3 ml Budesonide (Pulmicort) 0.5 mg INH RTBID [facility] Last Admin: 02/16/18 07:12 Dose: 0.5 mg Enoxaparin Sodium (Lovenox) 40 mg SUBQ DAILY [facility] Last Admin: 02/16/18 08:37 Dose: 40 mg Azithromycin 500 mg/ Sodium (Chloride) 250 mls @ 250 mls/hr IV 1000 [facility] Last Admin: 02/16/18 09:17 Dose: 250 mls/hr Ceftriaxone Sodium 2 gm/ (Sodium Chloride) 100 mls @ 200 mls/hr IV DAILY [facility] Last Infusion: 02/16/18 09:08 Dose: Infused Levothyroxine Sodium (Synthroid) 50 mcg PO QDAC [facility] Last Admin: 02/16/18 06:12 Dose: 50 mcg Lisinopril (Zestril) 20 mg PO QPM [facility] Methylprednisolone Sodium Succinate (Solu-Medrol (125mg Vial)) 125 mg IVP Q6H [facility] Last Admin: 02/16/18 06:12 Dose: 125 mg Nystatin (Mycostatin Cream) 1 applic TOP DAILY PRN PRN Reason: RASH Ondansetron HCl (Zofran Inj) 4 mg IVP Q6HR PRN PRN Reason: Nausea / Vomiting Ondansetron HCl (Zofran Odt) 4 mg TL Q6HR PRN PRN Reason: Nausea / Vomiting Oxycodone HCl (Roxicodone) 5 mg PO Q4HR PRN PRN Reason: Pain 5 to 7 Last Admin: 02/15/18 18:29 Dose: 5 mg Polyethylene Glycol (Miralax) 17 gm PO DAILY [facility] Last Admin: 02/16/18 08:27 Dose: Not Given Sodium Chloride (Normal Saline Flush 0.9%) 10 ml IVP PRN PRN PRN Reason: NEEDED PER PROVIDER ORDERS Last Admin: 02/16/18 06:12 Dose: 10 ml Sodium Chloride (Normal Saline Flush 0.9%) 10 ml IVP 0100,0900,1700 [facility] Last Admin: 02/16/18 08:27 Dose: 10 ml Acetaminophen [Tylenol] 650 mg PO TID PRN 01/28/18 Levothyroxine Sodium 50 mcg PO DAILY 01/28/18 Lisinopril 20 mg PO DAILY 01/28/18 Nystatin 1 applic TOP DAILY PRN 01/28/18 Albuterol Sulf [Ventolin Hfa Inhaler] 2 puffs INH Q6H PRN 02/15/18 Budesonide [Pulmicort Flexhaler] 180 mcg IH BID 02/15/18 Omeprazole [Omeprazole] 40 mg PO DAILY 02/15/18 predniSONE [Prednisone] 40 mg PO .TAPER 02/15/18 Objective - Vital Signs/Intake & Output Reviewed Vital Signs: Yes Vital Signs: Vital Signs x48h Temp Pulse Pulse Resp BP BP Pulse Ox 02/16/18 08:00 36.6 C 83 20 146/67 H 94 02/16/18 07:12 89 16 02/16/18 05:15 36.7 C 80 18 141/76 H 93 Intake & Output: Intake & Output 02/13/18 02/14/18 02/15/18 02/16/18 23:59 23:59 23:59 23:59 Intake Total 1700 864.58 Output Total 300 2800 Balance 1400 -1935.42 - Objective General Appearance: positive: Alert, Mild distress (Coughing, nasal congestion, but no increased respiratory effort to talk to me.), Other (Short statured moderately overweight) Eyes Bilateral: positive: PERRL, EOMI, Other (Sclera injected and muddy) ENT: positive: Pharyngeal erythema Neck: positive: No JVD. negative: Stiff neck, Carotid bruit Respiratory: positive: Chest non-tender, Rales, Rhonchi (Both are worse in the right lung than the left lung. Left lung is relatively clear.). negative: Wheezes Cardiovascular: positive: Regular rate & rhythm, Systolic murmur. negative: Gallop/S4, Friction rub Abdomen: positive: Non-tender, No organomegaly, Nml bowel sounds, No distention Extremities: positive: Full ROM Neurologic/Psychiatric: positive: Oriented x3, CN's nml (2-12), Motor nml - Lab Results Fish Bones: 02/16/18 09:14 02/16/18 09:14 Other Labs: Lab Results x24hrs 02/16/18 02/16/18 02/16/18 Range/Units 09:59 09:14 09:14 WBC 23.4 H (4.8-10.8) x10^3/uL RBC 4.86 (4.20-5.40) 10^6/uL Hgb 14.7 (12.0-16.0) g/dL Hct 45.0 (37.0-47.0) % MCV 92.6 (81.0-99.0) fL MCH 30.2 (27.0-31.0) pg MCHC 32.6 (32.0-36.0) g/dL RDW 14.1 (12.0-15.0) % Plt Count 319 (130-450) 10^3/uL MPV 8.0 (7.9-10.8) fL Neut # (Auto) 22.2 H (1.5-6.6) 10^3/uL Lymph # (Auto) 0.7 L (1.5-3.5) 10^3/uL [place] # (Auto) 0.4 (0.0-1.0) 10^3/uL Eos # (Auto) 0.0 (0.0-0.7) 10^3/uL Baso # (Auto) 0.0 (0.0-0.1) 10^3/uL Absolute Nucleated RBC 0.01 x10^3/uL Nucleated RBC % 0.0 /100WBC Manual Slide Review Indicated WBC Morphology (NORMAL) Platelet Estimate NORMAL (130-450,000) (NORMAL) Platelet Morphology NORMAL APPEARANCE (NORMAL) RBC Morph Micro Appear NORMAL APPEARANCE (NORMAL) Bld Gas Analysis Time Sample Site ABG pH (7.35-7.45) ABG pCO2 (34-45) mmHg ABG pO2 (80-100) mmHg ABG HCO3 (22.0-26.0) mmol/L ABG Total CO2 (21.0-29.0) MMOL/L ABG O2 Saturation (94-98) % ABG Oximetry Spot Check % ABG Base Excess (-2.0-3.0) mmol/L Evens Test O2 Delivery Device O2 Liters/Min LPM Sodium 134 L (135-145) mmol/L Potassium 3.8 (3.5-5.0) mmol/L Chloride 96 L (101-111) mmol/L Carbon Dioxide 24 (21-32) mmol/L Anion Gap 14.0 H (6-13) BUN 12 (6-20) mg/dL Creatinine 0.7 (0.4-1.0) mg/dL Estimated GFR (MDRD) 85 L (>89) Glucose 365 H (70-100) mg/dL Lactic Acid 4.3 H* (0.5-2.2) mmol/L Calcium 8.9 (8.5-10.3) mg/dL Troponin I (<0.49) ng/mL B-Natriuretic Peptide (5-100) pg/mL 02/16/18 02/16/18 02/15/18 Range/Units 06:38 06:38 23:50 WBC (4.8-10.8) x10^3/uL RBC (4.20-5.40) 10^6/uL Hgb (12.0-16.0) g/dL Hct (37.0-47.0) % MCV (81.0-99.0) fL MCH (27.0-31.0) pg MCHC (32.0-36.0) g/dL RDW (12.0-15.0) % Plt Count (130-450) 10^3/uL MPV (7.9-10.8) fL Neut # (Auto) (1.5-6.6) 10^3/uL Lymph # (Auto) (1.5-3.5) 10^3/uL [place] # (Auto) (0.0-1.0) 10^3/uL Eos # (Auto) (0.0-0.7) 10^3/uL Baso # (Auto) (0.0-0.1) 10^3/uL Absolute Nucleated RBC x10^3/uL Nucleated RBC % /100WBC Manual Slide Review WBC Morphology (NORMAL) Platelet Estimate (NORMAL) Platelet Morphology (NORMAL) RBC Morph Micro Appear (NORMAL) Bld Gas Analysis Time Sample Site ABG pH (7.35-7.45) ABG pCO2 (34-45) mmHg ABG pO2 (80-100) mmHg ABG HCO3 (22.0-26.0) mmol/L ABG Total CO2 (21.0-29.0) MMOL/L ABG O2 Saturation (94-98) % ABG Oximetry Spot Check % ABG Base Excess (-2.0-3.0) mmol/L Evens Test O2 Delivery Device O2 Liters/Min LPM Sodium (135-145) mmol/L Potassium (3.5-5.0) mmol/L Chloride (101-111) mmol/L Carbon Dioxide (21-32) mmol/L Anion Gap (6-13) BUN (6-20) mg/dL Creatinine (0.4-1.0) mg/dL Estimated GFR (MDRD) (>89) Glucose (70-100) mg/dL Lactic Acid 2.7 H (0.5-2.2) mmol/L Calcium (8.5-10.3) mg/dL Troponin I < 0.04 (<0.49) ng/mL B-Natriuretic Peptide 37 (5-100) pg/mL 02/15/18 02/15/18 02/15/18 Range/Units 22:52 21:19 20:25 WBC (4.8-10.8) x10^3/uL RBC (4.20-5.40) 10^6/uL Hgb (12.0-16.0) g/dL Hct (37.0-47.0) % MCV (81.0-99.0) fL MCH (27.0-31.0) pg MCHC (32.0-36.0) g/dL RDW (12.0-15.0) % Plt Count (130-450) 10^3/uL MPV (7.9-10.8) fL Neut # (Auto) (1.5-6.6) 10^3/uL Lymph # (Auto) (1.5-3.5) 10^3/uL [place] # (Auto) (0.0-1.0) 10^3/uL Eos # (Auto) (0.0-0.7) 10^3/uL Baso # (Auto) (0.0-0.1) 10^3/uL Absolute Nucleated RBC x10^3/uL Nucleated RBC % /100WBC Manual Slide Review WBC Morphology (NORMAL) Platelet Estimate (NORMAL) Platelet Morphology (NORMAL) RBC Morph Micro Appear (NORMAL) Bld Gas Analysis Time 212 Sample Site RRAD ABG pH 7.46 H (7.35-7.45) ABG pCO2 32 L (34-45) mmHg ABG pO2 118 H (80-100) mmHg ABG HCO3 22.3 (22.0-26.0) mmol/L ABG Total CO2 23.2 (21.0-29.0) MMOL/L ABG O2 Saturation 99 H (94-98) % ABG Oximetry Spot Check 92 % ABG Base Excess -0.6 (-2.0-3.0) mmol/L Evens Test POSITIVE O2 Delivery Device OXYMASK O2 Liters/Min 6.00 LPM Sodium (135-145) mmol/L Potassium (3.5-5.0) mmol/L Chloride (101-111) mmol/L Carbon Dioxide (21-32) mmol/L Anion Gap (6-13) BUN (6-20) mg/dL Creatinine (0.4-1.0) mg/dL Estimated GFR (MDRD) (>89) Glucose (70-100) mg/dL Lactic Acid 3.0 H* 3.4 H* (0.5-2.2) mmol/L Calcium (8.5-10.3) mg/dL Troponin I (<0.49) ng/mL B-Natriuretic Peptide (5-100) pg/mL ABX Reporting Has patient been on IV antibiotics over the past 48 hours?: Yes Assessment/Plan - Problem List (1) Acute respiratory failure with hypoxia Impression: She presents as a longtime smoker with frequent episodes of bronchitis. Although she has been told that she has early emphysema she has never had a formal diagnosis. No pneumonia is seen on chest x-ray. This is felt strictly to be COPD exacerbation. Slowly improving with treatment. Continue IV antibiotics Continue nebulizers Continue steroids (2) COPD exacerbation Impression: COPD is felt to be from long-time smoking. She quit 2 weeks ago. Treatment is as above for her acute respiratory failure. Again, she does not have pneumonia. Antibiotics are empiric in the hopes of reducing her length of stay. (3) Hyperglycemia, drug-induced Impression: Steele to be from her high-dose Solu-Medrol. Will start high-dose sliding scale short-acting insulin (4) Lactic acidosis Impression: Lactic acid was rising. Treated as infection and that she received more fluid resuscitation and continued IV antibiotics. Repeat lactic acid level continues to climb again from the 2.5 this morning. Blood gas does not correlate with a lactic acidosis. Her blood gas done around 9:00 in the evening shows a pH of 7.46, PCO2 32, PO2 118 with a base excess of -0.6. Bicarb is 22.3 without blood gas. I do not think her lactic acid is from infection. She is not on metformin. Consider lactic acidosis be from strictly the hyperglycemia induced from the steroids? We will plan to monitor for signs of infection. Right now she is in adequate resuscitation for #1 and 2. Her belly exam is negative. Urine was clear for other source of infection. (5) Fluid overload, unspecified Impression: Check echocardiogram to see what her baseline left ventricle and right ventricle are. Is a simple fluid overload from over resuscitation or does she have congestive heart failure? Qualifiers: Hypervolemia type: unspecified Qualified Code(s): E87.70 - Fluid overload, unspecified (6) HTN (hypertension) Impression: Here she is in the high 130s and low 140 systolic. On lisinopril at home. That will continue. She may be candidate for hydrochlorothiazide in the outpatient setting once her fluid status stabilized here. Qualifiers: Hypertension type: essential hypertension Qualified Code(s): I10 - Essential (primary) hypertension
[2018-02-16 11:20] LABS: HB2 TOTAL 16.2 g/dL; HEMOGLOBIN A1C 1.04 g/dL
[2018-02-16] MEDS: oxyCODONE 5 MG TABLET PO PRN (12:53)
[2018-02-16] MEDS ORDERED: INSULIN ASPART 300 UNIT/3 ML PEN SUBQ ONE ×2 (13:05→20:31)
[2018-02-16] MEDS: INSULIN ASPART 300 UNIT/3 ML PEN SUBQ SCH ×3 (13:09→20:47)
[2018-02-16] MEDS ORDERED: INSULIN GLARGINE 300 UNIT/3 ML PEN SUBQ SCH (21:00)
[2018-02-16] MEDS: LISINOPRIL 20 MG TABLET PO SCH (21:05)
[2018-02-16] MEDS: PANTOPRAZOLE 40 MG TABLET PO SCH (21:05)
[2018-02-17] MEDS: methylPREDNISolone SUCCINATE 125 MG/2 ML VIAL IVP SCH ×3 (05:56→17:20)
[2018-02-17] MEDS: PANTOPRAZOLE 40 MG TABLET PO SCH (05:56)
[2018-02-17] MEDS: SODIUM CHLORIDE FLUSH 0.9% 10 ML SYRINGE IVP PRN (05:56)
[2018-02-17] MEDS: LEVOTHYROXINE 25 MCG TABLET PO SCH (05:56)
[2018-02-17 06:32] LABS: BASOPHILS % (AUTO) 0.2 %; EOSINOPHILS % (AUTO) 0.5 %; HGB - HEMOGLOBIN 14.3 g/dL (12.0-16.0); LYMPHOCYTES % (AUTO) 2.1 %; MEAN CORPUSCULAR HEMOGLOBIN 30.2 pg (27.0-31.0); MEAN CORPUSCULAR HGB CONC 33.3 g/dL (32.0-36.0); MEAN CORPUSCULAR VOLUME 90.8 fL (81.0-99.0); MEAN PLATELET VOLUME 8.3 fL (7.9-10.8); MONOCYTES % (AUTO) 2.4 %; NEUTROPHILS % (AUTO) 94.8 %; PLT - PLATELET COUNT 309 10^3/uL (130-450); RED BLOOD COUNT 4.74 10^6/uL (4.20-5.40); WHITE BLOOD COUNT 26.4 x10^3/uL (4.8-10.8)
[2018-02-17 06:43] LABS: CALCIUM 9.2 mg/dL (8.5-10.3); CREATININE 0.6 mg/dL (0.4-1.0)
[2018-02-17 07:02] LABS: ABNORMAL LYMPHS % (MANUAL) 0 %; BAND NEUTROPHILS % (MANUAL) 0 %
[2018-02-17 07:16] LABS: DIFFERENTIAL COMMENT MANUAL DIFFERENTIAL; LYMPHOCYTES # (MANUAL) 1.3 10^3/uL (1.5-3.5); LYMPHOCYTES % (MANUAL) 5 %; MONOCYTES # (MANUAL) 1.6 10^3/uL (0.0-1.0); NEUTROPHILS # (MANUAL) 23.5 10^3/uL (1.5-6.6); NEUTROPHILS % (MANUAL) 89 %; PLATELET ESTIMATE, MANUAL NORMAL (130-450,000) (NORMAL); RBC MORPHOLOGY (MULTIPLE) NORMAL APPEARANCE (NORMAL)
[2018-02-17] MEDS: BUDESONIDE 0.5 MG/2 ML NEB INH SCH ×2 (07:45→21:11)
[2018-02-17] MEDS: IPRATROPIUM/ALBUTEROL 3 ML NEB INH SCH ×4 (07:45→21:11)
--- NOTE | 2018-02-17 08:14 | PROVIDER PROGRESS NOTE ---
Subjective - Prog Note Date Prog Note Date: 02/17/18 Prog Note Time: 08:14 - Subjective Subjective: she has less cough and less spasms that cause her to lose her air and turn red in the face but still feels liek "there's something there" and points to right med chest "that won't come up" eating, ambulating in room. Down to 5 liters and O2 sat 96% Current Medications - Current Medications Current Medications: Active Medications Acetaminophen (Tylenol) 650 mg PO Q4HR PRN PRN Reason: Pain 1 to 4 Last Admin: 02/15/18 23:51 Dose: 650 mg Albuterol/Ipratropium (Duoneb) 3 ml INH RTQID [facility] Last Admin: 02/17/18 07:45 Dose: 3 ml Budesonide (Pulmicort) 0.5 mg INH RTBID HERNANDEZ Last Admin: 02/17/18 07:45 Dose: 0.5 mg Enoxaparin Sodium (Lovenox) 40 mg SUBQ DAILY [facility] Last Admin: 02/16/18 08:37 Dose: 40 mg Azithromycin 500 mg/ Sodium (Chloride) 250 mls @ 250 mls/hr IV 1000 HERNANDEZ Last Infusion: 02/16/18 10:42 Dose: Infused Ceftriaxone Sodium 2 gm/ (Sodium Chloride) 100 mls @ 200 mls/hr IV DAILY [facility] Last Infusion: 02/16/18 09:08 Dose: Infused Insulin Aspart (Novolog) 3 - 11 unit SUBQ 0800,1200,1700,2100 HERNANDEZ PRN Reason: Protocol Last Admin: 02/16/18 20:47 Dose: Not Given Insulin Glargine (Lantus Solostar) 10 unit SUBQ QPM [facility] Last Admin: 02/16/18 21:05 Dose: 10 unit Levothyroxine Sodium (Synthroid) 50 mcg PO QDAC [facility] Last Admin: 02/17/18 05:56 Dose: 50 mcg Lisinopril (Zestril) 20 mg PO QPM [facility] Last Admin: 02/16/18 21:05 Dose: 20 mg Methylprednisolone Sodium Succinate (Solu-Medrol (125mg Vial)) 125 mg IVP Q6H [facility] Last Admin: 02/17/18 05:56 Dose: 125 mg Nystatin (Mycostatin Cream) 1 applic TOP DAILY PRN PRN Reason: RASH Ondansetron HCl (Zofran Inj) 4 mg IVP Q6HR PRN PRN Reason: Nausea / Vomiting Ondansetron HCl (Zofran Odt) 4 mg TL Q6HR PRN PRN Reason: Nausea / Vomiting Oxycodone HCl (Roxicodone) 5 mg PO Q4HR PRN PRN Reason: Pain 5 to 7 Last Admin: 02/16/18 12:53 Dose: 5 mg Pantoprazole Sodium (Protonix) 40 mg PO QDAC [facility] Last Admin: 02/17/18 05:56 Dose: 40 mg Polyethylene Glycol (Miralax) 17 gm PO DAILY [facility] Last Admin: 02/16/18 08:27 Dose: Not Given Sodium Chloride (Normal Saline Flush 0.9%) 10 ml IVP PRN PRN PRN Reason: NEEDED PER PROVIDER ORDERS Last Admin: 02/17/18 05:56 Dose: 10 ml Sodium Chloride (Normal Saline Flush 0.9%) 10 ml IVP 0100,0900,1700 [facility] Last Admin: 02/16/18 23:33 Dose: 10 ml Acetaminophen [Tylenol] 650 mg PO TID PRN 01/28/18 Levothyroxine Sodium 50 mcg PO DAILY 01/28/18 Lisinopril 20 mg PO DAILY 01/28/18 Nystatin 1 applic TOP DAILY PRN 01/28/18 Albuterol Sulf [Ventolin Hfa Inhaler] 2 puffs INH Q6H PRN 02/15/18 Budesonide [Pulmicort Flexhaler] 180 mcg IH BID 02/15/18 Omeprazole [Omeprazole] 40 mg PO DAILY 02/15/18 predniSONE [Prednisone] 40 mg PO .TAPER 02/15/18 Objective - Vital Signs/Intake & Output Reviewed Vital Signs: Yes Vital Signs: Vital Signs x48h Temp Pulse Pulse Resp BP Pulse Ox 02/17/18 07:48 75 20 02/17/18 04:00 36.6 C 72 18 138/88 H 93 Intake & Output: Intake & Output 02/14/18 02/15/18 02/16/18 02/17/18 23:59 23:59 23:59 23:59 Intake Total 1700 2204.58 Output Total 300 3950 600 Balance 1400 -1745.42 -600 - Objective General Appearance: positive: No acute distress, Alert, Other (short statured, florrid faced middles aged white female with moderate obesity) Eyes Bilateral: positive: PERRL, EOMI Neck: positive: No JVD. negative: Stiff neck, Carotid bruit Respiratory: positive: Chest non-tender, No respiratory distress, Wheezes, Rhonchi, Other (when she speaks, no use of acessory muscles. still gets "huffy" with walking to bathroomm) Cardiovascular: positive: Regular rate & rhythm, Tachycardia (sometimes). negative: Gallop/S4, Friction rub Abdomen: positive: Non-tender, No organomegaly, Nml bowel sounds, No distention Skin: positive: Warm, Dry Extremities: positive: Full ROM, No pedal edema Neurologic/Psychiatric: positive: Oriented x3, CN's nml (2-12), Motor nml. negative: Slurred/abnml speech, Depressed mood/affect - Lab Results Fish Bones: 02/17/18 06:05 02/17/18 06:05 Other Labs: Lab Results x24hrs 02/17/18 02/17/18 02/17/18 Range/Units 06:05 06:05 06:05 WBC 26.4 H (4.8-10.8) x10^3/uL RBC 4.74 (4.20-5.40) 10^6/uL Hgb 14.3 (12.0-16.0) g/dL Hct 43.0 (37.0-47.0) % MCV 90.8 (81.0-99.0) fL MCH 30.2 (27.0-31.0) pg MCHC 33.3 (32.0-36.0) g/dL RDW 14.0 (12.0-15.0) % Plt Count 309 (130-450) 10^3/uL MPV 8.3 (7.9-10.8) fL Neut # (Auto) Not Reportable (1.5-6.6) 10^3/uL Lymph # (Auto) Not Reportable (1.5-3.5) 10^3/uL Granite # (Auto) Not Reportable (0.0-1.0) 10^3/uL Eos # (Auto) Not Reportable (0.0-0.7) 10^3/uL Baso # (Auto) Not Reportable (0.0-0.1) 10^3/uL Absolute Nucleated RBC Not Reportable x10^3/uL Total Counted 100 Band Neuts % (Manual) 0 (0 - 10) % Abnorm Lymph % (Manual) 0 % Nucleated RBC % Not Reportable /100WBC Neutrophils # (Manual) 23.5 H (1.5-6.6) 10^3/uL Lymphocytes # (Manual) 1.3 L (1.5-3.5) 10^3/uL Monocytes # (Manual) 1.6 H (0.0-1.0) 10^3/uL Eosinophils # (Manual) 0.0 (0-0.7) 10^3/uL Basophils # (Manual) 0.0 (0-0.1) 10^3/uL Differential Comment MANUAL DIFFERENTIAL Manual Slide Review WBC Morphology (NORMAL) Platelet Estimate NORMAL (130-450,000) (NORMAL) Platelet Morphology (NORMAL) RBC Morph Micro Appear NORMAL APPEARANCE (NORMAL) Sodium 135 (135-145) mmol/L Potassium 4.2 (3.5-5.0) mmol/L Chloride 97 L (101-111) mmol/L Carbon Dioxide 31 (21-32) mmol/L Anion Gap 7.0 (6-13) BUN 17 (6-20) mg/dL Creatinine 0.6 (0.4-1.0) mg/dL Estimated GFR (MDRD) 102 (>89) Glucose 266 H (70-100) mg/dL Glycated Hemoglobin (4.6-6.2) % Estim Average Glucose (70-100) Lactic Acid (0.5-2.2) mmol/L Calcium 9.2 (8.5-10.3) mg/dL B-Natriuretic Peptide 72 (5-100) pg/mL 02/16/18 02/16/18 02/16/18 Range/Units 23:30 20:11 16:48 WBC (4.8-10.8) x10^3/uL RBC (4.20-5.40) 10^6/uL Hgb (12.0-16.0) g/dL Hct (37.0-47.0) % MCV (81.0-99.0) fL MCH (27.0-31.0) pg MCHC (32.0-36.0) g/dL RDW (12.0-15.0) % Plt Count (130-450) 10^3/uL MPV (7.9-10.8) fL Neut # (Auto) (1.5-6.6) 10^3/uL Lymph # (Auto) (1.5-3.5) 10^3/uL [place]ite # (Auto) (0.0-1.0) 10^3/uL Eos # (Auto) (0.0-0.7) 10^3/uL Baso # (Auto) (0.0-0.1) 10^3/uL Absolute Nucleated RBC x10^3/uL Total Counted Band Neuts % (Manual) (0 - 10) % Abnorm Lymph % (Manual) % Nucleated RBC % /100WBC Neutrophils # (Manual) (1.5-6.6) 10^3/uL Lymphocytes # (Manual) (1.5-3.5) 10^3/uL Monocytes # (Manual) (0.0-1.0) 10^3/uL Eosinophils # (Manual) (0-0.7) 10^3/uL Basophils # (Manual) (0-0.1) 10^3/uL Differential Comment Manual Slide Review WBC Morphology (NORMAL) Platelet Estimate (NORMAL) Platelet Morphology (NORMAL) RBC Morph Micro Appear (NORMAL) Sodium (135-145) mmol/L Potassium (3.5-5.0) mmol/L Chloride (101-111) mmol/L Carbon Dioxide (21-32) mmol/L Anion Gap (6-13) BUN (6-20) mg/dL Creatinine (0.4-1.0) mg/dL Estimated GFR (MDRD) (>89) Glucose (70-100) mg/dL Glycated Hemoglobin (4.6-6.2) % Estim Average Glucose (70-100) Lactic Acid 2.4 H 3.3 H* 3.4 H* (0.5-2.2) mmol/L Calcium (8.5-10.3) mg/dL B-Natriuretic Peptide (5-100) pg/mL 02/16/18 02/16/18 02/16/18 Range/Units 13:36 09:59 09:14 WBC (4.8-10.8) x10^3/uL RBC (4.20-5.40) 10^6/uL Hgb (12.0-16.0) g/dL Hct (37.0-47.0) % MCV (81.0-99.0) fL MCH (27.0-31.0) pg MCHC (32.0-36.0) g/dL RDW (12.0-15.0) % Plt Count (130-450) 10^3/uL MPV (7.9-10.8) fL Neut # (Auto) (1.5-6.6) 10^3/uL Lymph # (Auto) (1.5-3.5) 10^3/uL [place]ite # (Auto) (0.0-1.0) 10^3/uL Eos # (Auto) (0.0-0.7) 10^3/uL Baso # (Auto) (0.0-0.1) 10^3/uL Absolute Nucleated RBC x10^3/uL Total Counted Band Neuts % (Manual) (0 - 10) % Abnorm Lymph % (Manual) % Nucleated RBC % /100WBC Neutrophils # (Manual) (1.5-6.6) 10^3/uL Lymphocytes # (Manual) (1.5-3.5) 10^3/uL Monocytes # (Manual) (0.0-1.0) 10^3/uL Eosinophils # (Manual) (0-0.7) 10^3/uL Basophils # (Manual) (0-0.1) 10^3/uL Differential Comment Manual Slide Review WBC Morphology (NORMAL) Platelet Estimate (NORMAL) Platelet Morphology (NORMAL) RBC Morph Micro Appear (NORMAL) Sodium 134 L (135-145) mmol/L Potassium 3.8 (3.5-5.0) mmol/L Chloride 96 L (101-111) mmol/L Carbon Dioxide 24 (21-32) mmol/L Anion Gap 14.0 H (6-13) BUN 12 (6-20) mg/dL Creatinine 0.7 (0.4-1.0) mg/dL Estimated GFR (MDRD) 85 L (>89) Glucose 365 H (70-100) mg/dL Glycated Hemoglobin (4.6-6.2) % Estim Average Glucose (70-100) Lactic Acid 3.9 H* 4.3 H* (0.5-2.2) mmol/L Calcium 8.9 (8.5-10.3) mg/dL B-Natriuretic Peptide (5-100) pg/mL 02/16/18 02/16/18 Range/Units 09:14 09:10 WBC 23.4 H (4.8-10.8) x10^3/uL RBC 4.86 (4.20-5.40) 10^6/uL Hgb 14.7 (12.0-16.0) g/dL Hct 45.0 (37.0-47.0) % MCV 92.6 (81.0-99.0) fL MCH 30.2 (27.0-31.0) pg MCHC 32.6 (32.0-36.0) g/dL RDW 14.1 (12.0-15.0) % Plt Count 319 (130-450) 10^3/uL MPV 8.0 (7.9-10.8) fL Neut # (Auto) 22.2 H (1.5-6.6) 10^3/uL Lymph # (Auto) 0.7 L (1.5-3.5) 10^3/uL Granite # (Auto) 0.4 (0.0-1.0) 10^3/uL Eos # (Auto) 0.0 (0.0-0.7) 10^3/uL Baso # (Auto) 0.0 (0.0-0.1) 10^3/uL Absolute Nucleated RBC 0.01 x10^3/uL Total Counted Band Neuts % (Manual) (0 - 10) % Abnorm Lymph % (Manual) % Nucleated RBC % 0.0 /100WBC Neutrophils # (Manual) (1.5-6.6) 10^3/uL Lymphocytes # (Manual) (1.5-3.5) 10^3/uL Monocytes # (Manual) (0.0-1.0) 10^3/uL Eosinophils # (Manual) (0-0.7) 10^3/uL Basophils # (Manual) (0-0.1) 10^3/uL Differential Comment Manual Slide Review Indicated WBC Morphology (NORMAL) Platelet Estimate NORMAL (130-450,000) (NORMAL) Platelet Morphology NORMAL APPEARANCE (NORMAL) RBC Morph Micro Appear NORMAL APPEARANCE (NORMAL) Sodium (135-145) mmol/L Potassium (3.5-5.0) mmol/L Chloride (101-111) mmol/L Carbon Dioxide (21-32) mmol/L Anion Gap (6-13) BUN (6-20) mg/dL Creatinine (0.4-1.0) mg/dL Estimated GFR (MDRD) (>89) Glucose (70-100) mg/dL Glycated Hemoglobin 8.0 H (4.6-6.2) % Estim Average Glucose 183 H (70-100) Lactic Acid (0.5-2.2) mmol/L Calcium (8.5-10.3) mg/dL B-Natriuretic Peptide (5-100) pg/mL ABX Reporting Has patient been on IV antibiotics over the past 48 hours?: Yes Assessment/Plan - Problem List (1) Acute respiratory failure with hypoxia Impression: She presents as a longtime smoker with frequent episodes of bronchitis. Although she has been told that she has early emphysema she has never had a formal diagnosis. No pneumonia is seen on chest x-ray. This is felt strictly to be COPD exacerbation. Slowly improving with treatment. Continue IV antibiotics Continue nebulizers Continue steroids Continue to taper her O2 and see if she can get to room air today. (2) COPD exacerbation Impression: COPD is felt to be from long-time smoking. She quit 2 weeks ago. Treatment is as above for her acute respiratory failure. Again, she does not have pneumonia. Antibiotics are empiric in the hopes of reducing her length of stay. (3) Hyperglycemia, drug-induced Impression: [place] to be from her high-dose Solu-Medrol. Will start high-dose sliding scale short-acting insulin. Added lantus last night to 10 units and still 370's so will increase to 15 units. Taper her steroids from 125 to 60. (4) Lactic acidosis Impression: Lactic acid was rising. Treated as infection and that she received more fluid resuscitation and continued IV antibiotics. Repeat lactic acid level continues to climb again from the 2.5 yesterday. Blood gas does not correlate with a lactic acidosis. Her blood gas done around 9:00 in the evening 02/15 shows a pH of 7.46, PCO2 32, PO2 118 with a base excess of -0.6. Bicarb is 22.3 on serum. I do not think her lactic acid is from infection. She is not on metformin. Consider lactic acidosis be from strictly the hyperglycemia induced from the steroids plus dehdyration? We will plan to monitor for signs of infection. Right now she is in adequate resuscitation for #1 and 2. Her belly exam is negative. Urine was clear for other source of infection. (5) Fluid overload, unspecified Impression: Check echocardiogram to see what her baseline left ventricle and right ventricle are. Is a simple fluid overload from over resuscitation for now. Qualifiers: Hypervolemia type: unspecified Qualified Code(s): E87.70 - Fluid overload, unspecified (6) HTN (hypertension) Impression: Here she is in the high 130s and low 140 systolic. On lisinopril at home. That will continue. She may be candidate for hydrochlorothiazide in the outpatient setting once her fluid status stabilized here. Qualifiers: Hypertension type: essential hypertension Qualified Code(s): I10 - Essential (primary) hypertension
[2018-02-17] MEDS: cefTRIAXone 2 GM in SODIUM CHLORIDE 0.9% MINIBAG 100 ML IV SCH (08:19)
[2018-02-17] MEDS: AZITHROMYCIN INJ 500 MG in SODIUM CHLORIDE 0.9% 250 ML IV SCH (09:38)
[2018-02-17] MEDS: POLYETHYLENE GLYCOL 3350 17 GM PACKET PO SCH (09:48)
[2018-02-17] MEDS: ENOXAPARIN 40 MG/0.4 ML SYRINGE SUBQ SCH (09:49)
[2018-02-17] MEDS: INSULIN ASPART 300 UNIT/3 ML PEN SUBQ SCH ×4 (09:50→21:01)
[2018-02-17] MEDS: ACETAMINOPHEN 325 MG TABLET PO PRN (10:02)
[2018-02-17] MEDS: SODIUM CHLORIDE FLUSH 0.9% 10 ML SYRINGE IVP SCH ×2 (11:38→17:20)
[2018-02-17] MEDS: INSULIN GLARGINE 300 UNIT/3 ML PEN SUBQ SCH ×2 (13:10→21:01)
[2018-02-17] MEDS: LISINOPRIL 20 MG TABLET PO SCH (21:00)
[2018-02-18] MEDS: SODIUM CHLORIDE FLUSH 0.9% 10 ML SYRINGE IVP SCH ×2 (00:02→08:36)
[2018-02-18] MEDS: methylPREDNISolone SUCCINATE 125 MG/2 ML VIAL IVP SCH ×2 (00:02→05:43)
[2018-02-18] MEDS: LEVOTHYROXINE 25 MCG TABLET PO SCH (06:01)
[2018-02-18] MEDS: PANTOPRAZOLE 40 MG TABLET PO SCH (06:01)
[2018-02-18 06:12] LABS: CALCIUM 9.2 mg/dL (8.5-10.3); CREATININE 0.6 mg/dL (0.4-1.0)
[2018-02-18 06:22] LABS: BASOPHILS % (AUTO) 0.1 %; HGB - HEMOGLOBIN 14.3 g/dL (12.0-16.0); LYMPHOCYTES # (AUTO) 0.5 10^3/uL (1.5-3.5); LYMPHOCYTES % (AUTO) 2.5 %; MEAN CORPUSCULAR HEMOGLOBIN 30.4 pg (27.0-31.0); MEAN CORPUSCULAR HGB CONC 32.6 g/dL (32.0-36.0); MEAN CORPUSCULAR VOLUME 93.1 fL (81.0-99.0); MEAN PLATELET VOLUME 8.9 fL (7.9-10.8); MONOCYTES # (AUTO) 0.5 10^3/uL (0.0-1.0); MONOCYTES % (AUTO) 2.6 %; NEUTROPHILS # (AUTO) 19.1 10^3/uL (1.5-6.6); NEUTROPHILS % (AUTO) 94.8 %; PLT - PLATELET COUNT 294 10^3/uL (130-450); RED CELL DISTRIBUTION WIDTH 14.6 % (12.0-15.0); WHITE BLOOD COUNT 20.2 x10^3/uL (4.8-10.8)
[2018-02-18 07:10] LABS: DIFFERENTIAL COMMENT MANUAL=AUTO DIFF; PLATELET ESTIMATE, MANUAL NORMAL (130-450,000) (NORMAL); PLATELET MORPHOLOGY NORMAL APPEARANCE (NORMAL); RBC MORPHOLOGY (MULTIPLE) NORMAL APPEARANCE (NORMAL)
[2018-02-18] MEDS: IPRATROPIUM/ALBUTEROL 3 ML NEB INH SCH (08:03)
[2018-02-18] MEDS: BUDESONIDE 0.5 MG/2 ML NEB INH SCH (08:03)
[2018-02-18] MEDS: ENOXAPARIN 40 MG/0.4 ML SYRINGE SUBQ SCH (08:36)
[2018-02-18] MEDS: cefTRIAXone 2 GM in SODIUM CHLORIDE 0.9% MINIBAG 100 ML IV SCH (08:36)
[2018-02-18] MEDS: POLYETHYLENE GLYCOL 3350 17 GM PACKET PO SCH (08:36)
[2018-02-18] MEDS: INSULIN ASPART 300 UNIT/3 ML PEN SUBQ SCH ×2 (08:37→12:05)
--- NOTE | 2018-02-18 10:52 | Discharge Plan ---
Discharge Plan Disposition: 01 Home, Self Care Condition: Stable Prescriptions: Azithromycin 250 mg PO DAILY #15 tablet Oxygen 2 l IN DAILY #2 Tiotropium [place] [Spiriva] 18 mcg IH DAILY #60 cap.w.dev Diet: Regular Activity Restrictions: Activity as Tolerated Shower Restrictions: No Driving Restrictions: No Additional Instructions or Follow Up instructions: You were admitted to the hospital because of coughing, wheezing, chest congestion that is attributed to a flare of chronic obstructive pulmonary disease. You had a very low oxygen level, struggling to breathe, and coughing considerably. We treated you with IV antibiotics, IV steroids, nebulizers and you have slowly gotten better. You still have a tendency to wheeze and as such her lungs are still little "twitchy" and easily irritated. You will be sent home on some oxygen. We think this is temporary and within the next few weeks you should be able to come off of it. Taper off the steroids. You cannot stop them suddenly. We have added a new medicine called Spiriva which has been shown to help people with COPD. You will continue your Pulmicort, and your Ventolin. Ventolin can be used up to every 2 hours. But if you are using your Ventolin every 2 hours that means your lungs are getting worse and you should probably be seen either in the emergency room or by your primary care provider.Please make an appointment to see your primary care provider, Makenzie Keene, in the next week. In the next 2-3 months, I recommend she order complete pulmonary function studies for you to assess your COPD. I also recommend you start a Pulmonary Rehab course in the next 2-3 months. I also want to commend you on the fact you stopped smoking. It has been a hard 2 weeks for you. But I wish you continued success so that a year from now you can pass me on the street and shake my hand so I can congratulate you on not smoking. Follow-Up Care: [facility] - Pulmonary No Smoking: If you smoke, Please STOP! Call for help. Follow-up with: Makenzie Thornton ARNP [Primary Care Provider] -
[2018-02-18] MEDS: AZITHROMYCIN INJ 500 MG in SODIUM CHLORIDE 0.9% 250 ML IV SCH (12:24)
[2018-02-18] MEDS ORDERED: methylPREDNISolone SUCCINATE 40 MG/ML VIAL IVP SCH (14:00)
[2018-02-18 15:48] VITALS: BP 153/85
--- NOTE | 2018-02-22 20:36 | DISCHARGE SUMMARY ---
Physician: Emmanuelle Conway MD DATE OF ADMISSION: 02/15/2018 DATE OF DISCHARGE: 02/18/2018 DISCHARGE DIAGNOSES 1. Acute respiratory failure with hypoxia. 2. Chronic obstructive pulmonary disease exacerbation. 3. Hyperglycemia, drug induced. 4. Lactic acidosis. 5. Fluid overload, unspecified. 6. Hypertension. 7. Hypothyroidism. DISCHARGE MEDICATIONS 1. Tylenol 650 mg t.i.d. as needed. 2. Ventolin HFA inhaler 2 puffs every 6 hours as needed. 3. Azithromycin 250 mg daily, #15. Reassess for permanent preventative measures. 4. Budesonide Pulmicort inhaler 180 mg b.i.d. 5. Levothyroxine 50 mcg daily. 6. Lisinopril 20 mg daily. 7. Nystatin topical cream daily. 8. Omeprazole 40 mg daily. 9. Nasal cannula oxygen at 3 liters per minute at rest. 10. Prednisone 40 mg taper. 11. Spiriva 18 mcg inhalation b.i.d. PRINCIPAL PROCEDURES 1. Chest, thorax angiogram showing no evidence of acute or chronic pulmonary emboli. No evidence of right heart strain, pulmonary vascular congestion with possible subtle interstitial edema. Patchy a telectasis versus infiltrate. 2. Echocardiogram with left ventricle normal size and ejection fraction 65% to 70%. Normal diastolo gy. Right ventricle normal size and function with right ventricular systolic function normal. Both atrial volumes are normal. No significant valvular heart disease. Right ventricular systolic pressu re at rest was 19. HOSPITAL COURSE: The patient is a very pleasant 62-year-old, short-statured, red-faced female who lo oks older than her stated age. She has been experiencing symptoms of a URI for about 10 days. She a nd her daughter both became ill at the same time and they live with one another. She was seen by her primary care provider and a steroid course with Levaquin was prescribed. After second dose of Levaq uin, she developed redness and swelling to her left lower extremity that started in her knee and move d up her thigh, so she stopped it and returned to her PCP. Rash did go away after stopping the Levaq uin. She was switched to azithromycin. However, symptoms continued not to improve so then her stero id doses were increased with DuoNeb treatment given. Chest x-ray was completed with the primary care provider's office and she did not have any infiltrates. Today, she returned to the PCP acutely shor t of breath, wheezing, using accessory muscles. EMS was called and she was transferred to our emerge ncy room. This patient had been treated well within the outpatient setting and was now failing outpa tient management that was quite appropriate. In the emergency room, she received multiple DuoNeb shira atments, but wheezing and shortness of breath unimproved. She had a mildly elevated white cell count of 12.5 and a lactate acid of 2.1. She was given ceftriaxone, oxygen, and placed in the acute patie nt status. Her acute respiratory failure was definitely a problem in the first 48 hours. She received aggressiv e IV antibiotics, hydration, and even aggressive fluid resuscitation because of a rising lactic acid that was not responding to antibiotics, steroids, or fluids. She then eventually became fluid overlo aded and then we needed to diurese her. Echocardiogram was done to make sure she did not have pulmon stephie hypertension or systolic failure. Neither was found. It is gratifying to note that she does not have pulmonary hypertension as of yet in spite of her smoking history and COPD history. I explained to her that that is a good thing. She did develop secondary hyperglycemia from high-dose steroids. Maximum glucose was 430. This was treated with sliding scale insulin as well as Lantus. She is discharged on a tapered dose of steroid s and hopefully will not need any further therapy for her sugar in the outpatient setting. Her wheezing, rhonchi, and crackles gradually abated but even on the day of discharge, she would laug h spontaneously and have wheezing, but the rhonchi and respiratory distress had completely resolved. Lactic acidosis occurred during her stay. This is in spite of good fluid resuscitation and antibioti cs. It is puzzling to watch it rise and then slowly correct itself. Postulated that lactic acidosis could be from her hyperglycemia induced from the steroid plus dehydration. Blood pressure with me was well controlled during her stay. Her systolic was in the 130s to low 140s . She might be a candidate for hydrochlorothiazide in the outpatient setting once her fluid status i s stabilized. She is discharged in stable condition. She is to follow up with her primary care provider for follow up of lung exam, glucose, tapered steroid plan. Because her COPD exacerbation was so severe, I have also recommended that she get pulmonary consult with pulmonary function studies, appropriate evaluati on to make a final diagnosis whether this one does have COPD or not. I also recommend that she do pu lmonary rehabilitation program since she has successfully been able to stop smoking for the last 2 we eks. Temperature is 36.5, pulse is 79, blood pressure 153/85, respirations 16, and she has 3 liters nasal cannula, oxygenating at 95% on room air with rest. She is a short-statured, mildly to moderately ove rweit, middle-aged female who looks older than stated age. She does have a nasal tone of voice and when laughs spontaneously with wheeze, but overall her lungs have improved substantially from when I first admitted her today. No rhonchi, no crackles. Just a prolonged end-exhalation phase of breath ing. PMI is normally placed with a regular rate and rhythm. The abdomen is soft, obese, protuberant , nontender with normal bowel sounds. Trace edema around her ankles. She is able to lie, transfer t o a sitting position then transfer to a standing position without any assist. She is eating 100% of her meals. Greater than 30 minutes was spent coordinating discharge and going over discharge instructions with t his patient to make sure that she follows through with pulmonary referral, PFTs, and pulmonary rehabi litation. TD: 02/22/2018 10:44
== END 2018-02-18 16:24 | disposition home or self-care (01) | DRG 189 ==
LOC: EDUNIT# → ED 16:20 → MS2 17:14
PROVIDERS: ADMIT Specialist; ATTEND Specialist
DX: J96.01 Acute respiratory failure with hypoxia (principal); R09.02 Hypoxemia; J44.1 Chronic obstructive pulmonary disease with (acute) exacerbation; E87.2 Acidosis; Z88.8 Allergy status to other drugs, medicaments and biological substances; R73.9 Hyperglycemia, unspecified; T38.0X5A Adverse effect of glucocorticoids and synthetic analogues, initial encounter; E87.79 Other fluid overload; T50.3X5A Adverse effect of electrolytic, caloric and water-balance agents, initial encounter; E86.0 Dehydration; I10 Essential (primary) hypertension; E03.9 Hypothyroidism, unspecified; J06.9 Acute upper respiratory infection, unspecified; E66.9 Obesity, unspecified; E78.00 Pure hypercholesterolemia, unspecified; I71.4 Abdominal aortic aneurysm, without rupture; K21.9 Gastro-esophageal reflux disease without esophagitis; Z79.899 Other long term (current) drug therapy; Z68.39 Body mass index [BMI] 39.0-39.9, adult; Z87.891 Personal history of nicotine dependence; Z79.51 Long term (current) use of inhaled steroids
CPT/HCPCS: 36415; 36600; 71275; 80048; 80053; 81001; 82803; 83036; 83605; 83690; 83880; 84484; 85025; 87040; 87086; 93005; 93306; 94640; 94761; 96374; 99284; 99285; 99406

== ENCOUNTER → 2018-03-01 | Outpatient (CLI) | payer MEDICARE, MEDICAID | LOC: RT.N 11:50 | PROVIDERS: ATTEND Nurse Practitioner Gerontology | DX: R07.89 Other chest pain (principal) | CPT/HCPCS: 93005 ==

== ENCOUNTER 2018-03-26 08:00 | Outpatient (CLI) | payer MEDICARE, MEDICAID ==
[2018-03-26 19:00] LABS: BASOPHILS # (AUTO) 0.1 10^3/uL (0.0-0.1); EOSINOPHILS # (AUTO) 0.1 10^3/uL (0.0-0.7); EOSINOPHILS % (AUTO) 1.2 %; LYMPHOCYTES # (AUTO) 1.7 10^3/uL (1.5-3.5); LYMPHOCYTES % (AUTO) 26.2 %; MEAN CORPUSCULAR HEMOGLOBIN 30.8 pg (27.0-31.0); MEAN CORPUSCULAR HGB CONC 33.7 g/dL (32.0-36.0); MEAN CORPUSCULAR VOLUME 91.5 fL (81.0-99.0); MEAN PLATELET VOLUME 9.1 fL (7.9-10.8); MONOCYTES # (AUTO) 0.7 10^3/uL (0.0-1.0); MONOCYTES % (AUTO) 10.5 %; NEUTROPHILS # (AUTO) 3.9 10^3/uL (1.5-6.6); NEUTROPHILS % (AUTO) 61.1 %; PLT - PLATELET COUNT 296 10^3/uL (130-450); RED BLOOD COUNT 4.56 10^6/uL (4.20-5.40); RED CELL DISTRIBUTION WIDTH 14.9 % (12.0-15.0); WHITE BLOOD COUNT 6.4 x10^3/uL (4.8-10.8)
[2018-03-26 19:12] LABS: ALBUMIN 3.8 g/dL (3.2-5.5); ALBUMIN/GLOBULIN RATIO 1.3 (1.0-2.2); BILIRUBIN,TOTAL 0.4 mg/dL (0.2-1.0); CREATININE 0.7 mg/dL (0.4-1.0); TOTAL PROTEIN 6.8 g/dL (6.7-8.2)
== END 2018-03-26 08:01 | disposition home or self-care (01) ==
LOC: LAB.N 08:00
PROVIDERS: ATTEND Nurse Practitioner Gerontology
DX: E66.9 Obesity, unspecified (principal); J44.9 Chronic obstructive pulmonary disease, unspecified; E11.9 Type 2 diabetes mellitus without complications; E03.9 Hypothyroidism, unspecified; I10 Essential (primary) hypertension
CPT/HCPCS: 36415; 80053; 84443; 85025

== ENCOUNTER 2018-04-03 17:20 | Outpatient (CLI) | payer MEDICARE, MEDICAID ==
--- NOTE | 2018-04-04 09:57 | Ultrasound Report ---
Reason: ABDOMINAL AORTIC ANEURYSM,WITHOUT RUPTURE Procedure Date: 04/03/2018 Accession Number: [id number] / [id number] Procedure: US - Retroperitoneal Limited CPT Code: FULL RESULT: EXAM: AORTIC DOPPLER ULTRASOUND EXAM DATE: 04/03/2018 05:48 PM. CLINICAL HISTORY: Abdominal aortic aneurysm, without rupture. COMPARISON: ABDOMEN/PELVIS W/ 03/08/2017. TECHNIQUE: Real-time sonographic imaging of retroperitoneal vascular structures, including color-flow, Doppler flow and spectral analysis was performed by the structures engineer. Multiple guest experience representative static images were saved for review. FINDINGS: Aorta: Atheromatous plaques are noted in the abdominal aorta. There is a fusiform mid and lower abdominal aortic aneurysm measuring 4.6 x 4.3 cm in the transverse plane. No retroperitoneal hematoma. Previously, the aneurysm measured up to 4.[address] Aorta: Proximal: Sagittal AP: 2.8 cm. Mid: Transverse: 2.6 x 2.1 cm. Distal: Transverse: 4.6 x 4.3 cm. Caliber WNL: Yes. Plaque visualized: No. Iliacs: Right Iliac: Transverse: 1.2 x 1.4 cm. Left Iliac: Transverse: 1 x 1.3 cm. Iliac Vessels: The visualized proximal common iliac arteries are normal in caliber. Other: None. IMPRESSION: 1. Stable lower abdominal aortic aneurysm measuring 4.6 cm compared with the previous 4.5 cm. 2. No retroperitoneal hematoma. RADIA
== END 2018-04-03 17:21 | disposition home or self-care (01) ==
LOC: DI 17:20
PROVIDERS: ATTEND Nurse Practitioner Gerontology
DX: I71.4 Abdominal aortic aneurysm, without rupture (principal)
CPT/HCPCS: 76775

== ENCOUNTER 2018-05-13 14:01 | Outpatient (CLI) | payer MEDICARE, MEDICAID | END 2018-05-13 14:02 | disposition home or self-care (01) | LOC: SC 14:01 | PROVIDERS: ATTEND Internal Medicine Pulmonary Disease | DX: G47.10 Hypersomnia, unspecified (principal); R06.83 Snoring; R41.89 Other symptoms and signs involving cognitive functions and awareness | CPT/HCPCS: 99203; G0463; 99212 ==

== ENCOUNTER 2018-06-26 11:15 | Outpatient (CLI) | payer MEDICARE, MEDICAID ==
[2018-06-26 14:06] LABS: HEMOGLOBIN A1C 0.7 g/dL; HEMOGLOBIN A1C % 6.2 % (4.6-6.2)
== END 2018-06-26 23:59 | disposition home or self-care (01) ==
LOC: LAB.N 11:15
PROVIDERS: ATTEND Nurse Practitioner Gerontology
DX: E11.9 Type 2 diabetes mellitus without complications (principal)
CPT/HCPCS: 36415; 83036

== ENCOUNTER 2018-06-27 20:42 | Outpatient (CLI) | payer MEDICARE, MEDICAID | END 2018-06-27 20:43 | disposition home or self-care (01) | LOC: SC 20:42 | PROVIDERS: ATTEND Internal Medicine Pulmonary Disease | DX: G47.33 Obstructive sleep apnea (adult) (pediatric) (principal); G47.61 Periodic limb movement disorder | CPT/HCPCS: 95810 ==

== ENCOUNTER 2018-07-11 08:47 | Outpatient (CLI) | payer MEDICARE, MEDICAID | END 2018-07-11 08:48 | disposition home or self-care (01) | LOC: SC 08:47 | PROVIDERS: ATTEND Nurse Practitioner Family | DX: G47.33 Obstructive sleep apnea (adult) (pediatric) (principal); G47.61 Periodic limb movement disorder | CPT/HCPCS: 99214; G0463; 99212 ==

== ENCOUNTER 2018-09-11 08:11 | Outpatient (CLI) | payer MEDICARE, MEDICAID | END 2018-09-11 08:12 | disposition home or self-care (01) | LOC: SC 08:11 | PROVIDERS: ATTEND Nurse Practitioner Family | DX: G47.33 Obstructive sleep apnea (adult) (pediatric) (principal) | CPT/HCPCS: 99214; G0463; 99212 ==

== ENCOUNTER 2018-10-08 09:32 | Outpatient (CLI) | payer MEDICARE, MEDICAID ==
--- NOTE | 2018-10-08 17:01 | Ultrasound Report ---
Reason: ABDOMINAL AORTIC ANEURYSM,W/O RUPTURE Procedure Date: 10/08/2018 Accession Number: [id number] / [id number] Procedure: US - Retroperitoneal Limited CPT Code: FULL RESULT: EXAM: AORTIC DOPPLER ULTRASOUND EXAM DATE: 10/08/2018 10:34 AM. CLINICAL HISTORY: Abdominal aortic aneurysm, without rupture. COMPARISON: RETROPERITONEAL LIMITED 04/03/2018 5:28 PM. TECHNIQUE: Real-time sonographic imaging of retroperitoneal vascular structures, including color-flow, was performed by the specialty molder. Multiple product support representative static images were saved for review. FINDINGS: Aorta: The abdominal aorta was adequately visualized longitudinally, but transverse imaging was limited due to body habitus and bowel gas. There is moderate atherosclerotic deposition within the aorta. There is ectasia of the proximal and mid aorta similar to the prior exam, maximum transverse dimension 2.8 cm. Fusiform infrarenal abdominal aortic aneurysm again noted with maximum transverse dimension 4.8 cm slightly increased compared to prior when it measured 4.6 cm. 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 Aorta: Proximal: Sagittal AP: 2.6 cm. Mid: Transverse: 2.4 x 2.8 cm. Distal: Transverse: 4.8 x 4.4 cm. Caliber WNL: Yes. Plaque visualized: Yes. Iliacs: Right Iliac: Transverse: 1.6. Unable to visualize in transverse.) Left Iliac: Transverse: 1.6. Unable to visualize in transverse.) Iliac Vessels: As above. Other: None. IMPRESSION: Fusiform infrarenal abdominal aortic aneurysm, maximum transverse dimension 4.8 cm, similar to the prior exam. RADIA
== END 2018-10-08 09:33 | disposition home or self-care (01) ==
LOC: DI 09:32
PROVIDERS: ATTEND Nurse Practitioner Gerontology
DX: I71.4 Abdominal aortic aneurysm, without rupture (principal)
CPT/HCPCS: 76775

== ENCOUNTER 2018-12-10 10:16 | Outpatient (CLI) | payer MEDICARE, MEDICAID | END 2018-12-10 10:17 | disposition home or self-care (01) | LOC: SC 10:16 | PROVIDERS: ATTEND Nurse Practitioner Family | DX: G47.33 Obstructive sleep apnea (adult) (pediatric) (principal) | CPT/HCPCS: 99214; G0463; 99212 ==

== ENCOUNTER 2019-07-31 08:00 | Outpatient (CLI) | payer MEDICARE, MEDICAID ==
[2019-07-31 11:57] LABS: BASOPHILS # (AUTO) 0.1 10^3/uL (0.0-0.1); BASOPHILS % (AUTO) 1.3 %; EOSINOPHILS # (AUTO) 0.2 10^3/uL (0.0-0.7); EOSINOPHILS % (AUTO) 2.5 %; HGB - HEMOGLOBIN 13.7 g/dL (12.0-16.0); LYMPHOCYTES # (AUTO) 1.9 10^3/uL (1.5-3.5); LYMPHOCYTES % (AUTO) 31.1 %; MEAN CORPUSCULAR HEMOGLOBIN 31.4 pg (27.0-31.0); MEAN CORPUSCULAR HGB CONC 32.2 g/dL (32.0-36.0); MEAN CORPUSCULAR VOLUME 97.3 fL (81.0-99.0); MEAN PLATELET VOLUME 10.6 fL (7.9-10.8); MONOCYTES # (AUTO) 0.4 10^3/uL (0.0-1.0); MONOCYTES % (AUTO) 7.2 %; NEUTROPHILS # (AUTO) 3.5 10^3/uL (1.5-6.6); NEUTROPHILS % (AUTO) 57.6 %; PLT - PLATELET COUNT 295 10^3/uL (130-450); RED BLOOD COUNT 4.37 10^6/uL (4.20-5.40); RED CELL DISTRIBUTION WIDTH 13.8 % (12.0-15.0); WHITE BLOOD COUNT 6.1 x10^3/uL (4.8-10.8)
[2019-07-31 12:26] LABS: ALBUMIN 3.9 g/dL (3.2-5.5); ALBUMIN/GLOBULIN RATIO 1.2 (1.0-2.2); ALKALINE PHOSPHATASE 61 IU/L (42-121); ALT ALANINE AMINOTRANSFERASE 39 IU/L (10-60); AST ASPARTATE AMINOTRANSFERASE 24 IU/L (10-42); BILIRUBIN,TOTAL 0.6 mg/dL (0.2-1.0); BUN - BLOOD UREA NITROGEN 10 mg/dL (6-20); CALCIUM 9.2 mg/dL (8.5-10.3); CARBON DIOXIDE - CO2 24 mmol/L (21-32); CHLORIDE 101 mmol/L (101-111); CHOL/HDL RATIO 11.5 (<4.4); CHOLESTEROL 519 mg/dL; CREATININE 0.7 mg/dL (0.4-1.0); GFR - MDRD 85 (>89); GLUCOSE 163 mg/dL (70-100); HB2 TOTAL 13.6 g/dL; HDL CHOLESTEROL 45 mg/dL; HEMOGLOBIN A1C 0.68 g/dL; HEMOGLOBIN A1C % 6.7 % (4.6-6.2); SODIUM 136 mmol/L (135-145); TOTAL PROTEIN 7.2 g/dL (6.7-8.2)
[2019-07-31 13:08] LABS: LDL CHOLESTEROL,DIRECT 269 mg/dL
[2019-07-31 14:06] LABS: FREE T4 (FREE THYROXINE) 0.39 ng/dL (0.58-1.64)
== END 2019-07-31 23:59 | disposition home or self-care (01) ==
LOC: LAB.N 08:00
PROVIDERS: ATTEND Nurse Practitioner Gerontology
DX: E11.9 Type 2 diabetes mellitus without complications (principal); M54.2 Cervicalgia; E03.9 Hypothyroidism, unspecified; I10 Essential (primary) hypertension; R20.2 Paresthesia of skin
CPT/HCPCS: 36415; 80053; 80061; 83036; 83721; 84439; 84443; 85025

== ENCOUNTER 2019-08-13 09:20 | Outpatient (CLI) | payer MEDICARE, MEDICAID ==
[2019-08-13 10:22] VITALS: BP 150/80
--- NOTE | 2019-08-13 10:23 | SLEEP CARE CONSULTATION ---
Information from patient questionnaire entered by Lora Ponce. I have reviewed and concur with the information entered by Lora Ponce. This document represents the service I personally performed and the decisions made by me, Cheryl Ospina, RN, MSN, STACKER ATTENDANT. History of Present Illness Previous diagnosis: Mild, Obstructive Sleep Apnea-Hypopnea Syndrome AHI: 11.9 Reason for follow up: six month Accompanied by: Cande Link Equipment type: CPAP Equipment obtained from: [employer] Mask style: Nasal (Dreamwear) Mask brand: Respironics Backup mask available: Yes Last cushion change: last week HPI additional information: She did not try the humidifier for oral dryness but mild. CPAP Compliance Data - Data Reviewed with Patient Average duration of nightly device use: 6.45 Compliance rate %: 94.4 (180 days) Current pressure setting (cmH2O): 4-8 Humidity setting: off Heated hose setting: off Average residual AHI: 2.2 Average large leak: 1 min 7 sec Subjective Patient concerns: reports: dry mouth, nose, throat (mild now intermittent - does not want to use humidifier), other (waking to pain and having to use the bathroom. Room too warm with cooler weather since her son in law adjusted heat. She is thinking of closing vent. ). denies: aerophagia, mask discomfort, air blowing in eyes, mask leak noise, condensation in mask/hose, nasal congestion, epistaxis Observed to snore while using device: No Current pressure setting perceived as: comfortable On therapy, patient: reports: sleeping better (but less when having pain), awakening more refreshed, being more awake and alert during the day, more rested overall. denies: drowsiness while driving (does not drive) Initial [place] Sleepiness Scale score: 14 Current [place] Sleepiness Scale score: 12 Allergies and Home Medications Known drug allergies: Yes (unknown pill ) Home medication list reviewed: Yes (statin added , levothyroxine increased - see list ) Allergy and home medication list: Medication Name (generic/name brand) Strength & Dosage Metformin HCL 1000mg tab one twice daily Ventolin HFA 108 (90 base) mcg/act Inhale 2 actuations q6hr as needed Lisinopril 20mg tab one daily Levothyroxine Sodium 150mcg tab one daily Nystatin 303714 unit/gm external cream Apply to affected area daily prn Tylenol (Acetaminophen) 325mg tab 2 three times daily as needed Atorvastatin daily at night, unknown dose Physical Exam Blood Pressure: 150/80 (after PT exercises, leg pain 6-7of 10 pain scale ) Cuff size: long Heart Rate: 68 O2 Saturation: 97 Height: 5 ft 3 in Weight: 238 lb Body Mass Index: 42.1 BMI Classification: Obesity Class 3 Impression and Plan 1. Obstructive Sleep Apnea-Hypopnea Syndrome, mild, with good treatment compliance and good apnea control. On CPAP therapy, the patient has better sleep quality and is more rested overall if sleep not disrupted by pain. To reduce waking too warm she has decided to close room vent which caregiver will assist with. She is going to PT for pain management / exercises and uses Tylenol. Her blood pressure was slightly elevated today due to pain and advised to recheck at home and if continued elevations, to contact her PCP with rationale discussed. BP monitoring card given to monitor and for weight monitoring. For her intermiitent oral dryness, she was informed of dry mouth products, but declined and perfers drinking water as needed. When discussed effect to teeth, she has dentures. If oral dryness does increase in future, she is advised to try humidity as discussed before for oral hygiene. Patient has gained more weight. Currently patients BMI is 42.1 obesity class lll . Obesity increases the risk of apnea, CPAP pressure requirements and overall health risks especially cardiovascular and diabetes. Thus patient is advised to lose weight. Weight loss can be done with reducing portion size, refined foods and balancing content with vegetables, fruit and protein. Tracking food intake to see where modifications need to be made and making small 10 pounds weight loss goals will assist weight loss. A diet consultation can be helpful in achieving optimal weight loss goals. The BMI chart was reviewed. The patient would like to reduce her weight and has started a new exercise program given by daughter that is 15 minutes daily and pleased with program. She is so far achieving half the goal with her caregiver in addition to her PT exercises. She is advised of slow progress and to check with her doctor and PT for goals. Patient encouraged to discuss their weight loss goals with their PCP and consider a referral to a press loader. The patient's current auto CPAP pressure should accommodate for future weight loss. However, it will not accommodate for future weight gain. Symptoms to report for additional pressure adjustment discussed. Patient's apnea severity and rationale for treatment to reduce apnea, improve sleep quality and reduce cardiovascular and cerebrovascular events was reviewed. I also reviewed the benefit of consistent device use of CPAP for hypertension, diabetes. * Continue CPAP pressure at 4-8 cmH2O * Notify me if snoring with mask or feeling that the pressure is too much or too little * Attempt to lose weight as discussed * Consider diet consultation. * Try humidity if dryness increases. * Call this office if any problems using CPAP * Return for follow up in 1 year , or sooner if concerns arise Time Spent with Patient (minutes): 32 I spent 100% of this visit face to face with the patient with greater than 50% of this was spent time counseling the patient and coordination of care.
== END 2019-08-13 09:21 | disposition home or self-care (01) ==
LOC: SC 09:20
PROVIDERS: ATTEND Nurse Practitioner Family
DX: G47.33 Obstructive sleep apnea (adult) (pediatric) (principal); E66.9 Obesity, unspecified; Z68.41 Body mass index [BMI] 40.0-44.9, adult
CPT/HCPCS: 99214; G0463; 99212

== ENCOUNTER 2019-09-12 08:24 | Outpatient (CLI) | payer MEDICARE, MEDICAID ==
[2019-09-12 13:24] LABS: CHOL/HDL RATIO 3.7 (<4.4); CHOLESTEROL 188 mg/dL; HDL CHOLESTEROL 51 mg/dL; LDL CHOLESTEROL,CALCULATED 73 mg/dL; LDL/HDL RATIO 1.4 (<4.4); VLDL CHOLESTEROL 64 mg/dL
== END 2019-09-12 23:59 | disposition home or self-care (01) ==
LOC: LAB.N 08:24
PROVIDERS: ATTEND Nurse Practitioner Gerontology
DX: E78.5 Hyperlipidemia, unspecified (principal); E03.9 Hypothyroidism, unspecified
CPT/HCPCS: 36415; 80061; 83721; 84443

== ENCOUNTER 2020-01-16 09:45 | Outpatient (CLI) | payer MEDICARE, MEDICAID ==
--- NOTE | 2020-01-16 14:20 | Ultrasound Report ---
PROCEDURE: Retroperitoneal Limited INDICATIONS: AAA W/O RUPTURE TECHNIQUE: Real-time scanning was performed of the aorta, with image documentation. COMPARISON: Retroperitoneal ultrasound 10/08/2018, 04/03/2018.. FINDINGS: The proximal mid and distal portions of the aorta measure 12.5 x 2.7 cm, 2.7 x 2.7 cm as well as 4.6 x 4.6 cm within the proximal, mid and distal portions respectively. The length of the fusiform aneury smal focus within the distal segment measures approximately 7.6 cm. It is noted this previously measu red 4.8 x 4.4 cm with a length of 7.5 cm on 10/08/2018. The right and left common iliac arteries measu re 0.9 x 0.9 cm and 1.2 x 1.2 cm on the right and left respectively. IMPRESSION: Stable appearance of distal aortic aneurysmal dilation. Reviewed by: Karly Hampton MD on 01/16/2020 2:19 PM PDT Approved by: Karly Hampton MD on 01/16/2020 2:19 PM PDT Station ID: [id number]
== END 2020-01-16 09:46 | disposition home or self-care (01) ==
LOC: DI 09:45
PROVIDERS: ATTEND Family Medicine
DX: I71.4 Abdominal aortic aneurysm, without rupture (principal)
CPT/HCPCS: 76775

== ENCOUNTER 2020-02-03 10:53 | Outpatient (CLI) | payer MEDICARE, MEDICAID ==
[2020-02-03 18:46] LABS: HGB - HEMOGLOBIN 14.4 g/dL (12.0-16.0); MEAN CORPUSCULAR HEMOGLOBIN 30.3 pg (27.0-31.0); MEAN CORPUSCULAR HGB CONC 31.9 g/dL (32.0-36.0); MEAN CORPUSCULAR VOLUME 95.2 fL (81.0-99.0); MEAN PLATELET VOLUME 10.9 fL (7.9-10.8); RED BLOOD COUNT 4.75 10^6/uL (4.20-5.40); WHITE BLOOD COUNT 5.2 x10^3/uL (4.8-10.8)
[2020-02-03 19:24] LABS: ALBUMIN 4.1 g/dL (3.2-5.5); ALBUMIN/GLOBULIN RATIO 1.6 (1.0-2.2); BILIRUBIN,TOTAL 0.9 mg/dL (0.2-1.0); CREATININE 0.7 mg/dL (0.4-1.0); TOTAL PROTEIN 6.6 g/dL (6.7-8.2)
[2020-02-03 19:50] LABS: HB2 TOTAL 15.1 g/dL; HEMOGLOBIN A1C 0.84 g/dL; HEMOGLOBIN A1C % 7.2 % (4.6-6.2)
[2020-02-04 14:48] LABS: CREATININE,URINE 52.5 mg/dL
[2020-02-04 14:49] LABS: MICROALBUM/CREATININE RATIO,UR 3.8 ug/mg (<30.0); MICROALBUMIN,URINE 0.2 mg/dL (0-300.0)
== END 2020-02-03 23:59 | disposition home or self-care (01) ==
LOC: LAB.WCP 10:53
PROVIDERS: ATTEND Family Medicine
DX: E11.9 Type 2 diabetes mellitus without complications (principal); R06.09 Other forms of dyspnea
CPT/HCPCS: 36415; 80053; 82043; 82570; 83036; 83880; 85027

== ENCOUNTER 2020-02-04 07:00 | Outpatient (CLI) | payer MEDICARE, MEDICAID ==
[2020-02-04 13:16] LABS: CREATININE,URINE 52.5 mg/dL; MICROALBUM/CREATININE RATIO,UR 3.8 ug/mg (<30.0); MICROALBUMIN,URINE 0.2 mg/dL (0-300.0)
== END 2020-02-04 23:59 | disposition home or self-care (01) ==
LOC: LAB.R 07:00
PROVIDERS: ATTEND Family Medicine
DX: E11.9 Type 2 diabetes mellitus without complications (principal)
CPT/HCPCS: 82043; 82570

== ENCOUNTER 2020-02-12 08:16 | Outpatient (CLI) | payer MEDICARE, MEDICAID ==
--- NOTE | 2020-02-16 07:59 | Mammography Report ---
Reason: ROUTINE MAMMO Procedure Date: 02/12/2020 Accession Number: [id number] / [id number] Procedure: MGN - Screening Mammo w/Marvin CPT Code: Final Report FULL RESULT: BILATERAL DIGITAL SCREENING MAMMOGRAM 3D/2D: 02/12/2020 CLINICAL: Routine screening. Comparison is made to exam dated: 09/25/2016 mammogram - [facility]. The tissue of both breasts is heterogeneously dense. This may lower the sensitivity of mammography. There is a mass in the right breast at 10 o'clock middle depth. This is increased in size. No other significant masses, calcifications, or other findings are seen in either breast. IMPRESSION: INCOMPLETE: NEEDS ADDITIONAL IMAGING EVALUATION The mass in the right breast is indeterminate. Additional views with possible ultrasound are recommended. This exam was interpreted at Station ID: [id number]. NOTE: For mammograms, a report in lay terms will be sent to the patient. Approximately 15% of breast malignancies will not be visualized mammographically. In the management of a palpable breast mass, a negative mammogram must not discourage biopsy of a clinically suspicious lesion. Electronically Signed By: Vale prather/nikita:02/13/2020 16:24:02 ACR BI-RADS Category 0: Incomplete 3340F C -Heterogeneously dense 0 Mammo and [place] [id number] Immediate follow-up B
== END 2020-02-12 08:17 | disposition home or self-care (01) ==
LOC: DI.N 08:16
DX: Z12.31 Encounter for screening mammogram for malignant neoplasm of breast (principal); N63.10 Unspecified lump in the right breast, unspecified quadrant
CPT/HCPCS: 77063; 77067

== ENCOUNTER 2020-03-09 12:58 | Outpatient (CLI) | payer MEDICARE, MEDICAID ==
[2020-03-09] MEDS ORDERED: IOVERSOL 320 100 ML VIAL IVP ONE ×2 (13:18→15:50)
[2020-03-09 13:23] LABS: CREATININE 0.7 mg/dL (0.4-1.0)
--- NOTE | 2020-03-09 14:50 | CT Report ---
PROCEDURE: MAXILLOFACIAL W INDICATIONS: CELLULITIS OF FACE CONTRAST: IV CONTRAST: Optiray 320 ml: 80 PO CONTRAST: *NO PO CONTRAST TECHNIQUE: After the administration of intravenous contrast, 3.0 mm axial sections acquired from the mid-neck to the frontal sinuses, with coronal reformatting. For radiation dose reduction, the following was use d: automated exposure control, adjustment of mA and/or kV according to patient size. COMPARISON: None. FINDINGS: Image quality: Excellent. Soft tissues: There is a very minimal asymmetric soft tissue prominence in the right lower face super ior to the right parotid gland at the area of palpable concern. No focal fluid collection is identifi ed. No enlarged lymph nodes. Vascular: Visualized vascular structures appear patent throughout. Bony vascular foramina and canal s appear normal. Bones: Facial bones appear intact, without fractures, erosions, or destruction. Visualized portions of the skull base and auditory canals also appear normal. Sinuses: Paranasal sinuses are aerated without fluid levels, mucosal thickening, or mucoceles. Mast oid air cells are aerated. IMPRESSION: Very minimal asymmetric facial soft tissue prominence as above. This could be related to mild degree of infection or inflammation. No abscess or fluid collection is identified. The above findings were discussed with Rakan Fried on 03/09/2020 at 2:45 PM. Reviewed by: Karly Hampton MD on 03/09/2020 2:49 PM PDT Approved by: Karly Hampton MD on 03/09/2020 2:49 PM PDT Station ID: [id number]
== END 2020-03-09 12:59 | disposition home or self-care (01) ==
LOC: DI 12:58
PROVIDERS: ATTEND Family Medicine
DX: R93.0 Abnormal findings on diagnostic imaging of skull and head, not elsewhere classified (principal)
CPT/HCPCS: 36415; 70487; 82565; Q9967

== ENCOUNTER 2020-04-08 11:18 | Outpatient (CLI) | payer MEDICARE, MEDICAID ==
--- NOTE | 2020-04-09 08:27 | Mammography Report ---
UNILATERAL RIGHT DIGITAL DIAGNOSTIC MAMMOGRAM 3D/2D: 04/08/2020 CLINICAL: Patient returns for additional imaging over a suspected mass in the left breast. Comparison is made to exams dated: 02/12/2020 mammogram and 09/25/2016 mammogram - [facility]. The tissue of right breast is heterogeneously dense. This may lower the sensitivity of len mography. There is a new 1.4 cm irregular mass with a microlobulated margin in the right breast at 11 o'clock p osterior depth 8.8 cm from the nipple. No other significant masses or calcifications are seen in the breast. IMPRESSION: INCOMPLETE: NEEDS ADDITIONAL IMAGING EVALUATION The new 1.4 cm irregular mass in the right breast is indeterminate. This exam was interpreted at Station ID: [id number]. NOTE: For mammograms, a report in lay terms will be sent to the patient. Approximately 15% of breast malignancies will not be visualized mammographically. In the management of a palpable breast mass, a negative mammogram must not discourage biopsy of a clinically suspicious lesion. Electronically Signed By: Capo Vicente M.D., jr/nikita:04/08/2020 14:11:29 ACR BI-RADS Category 0: Incomplete 3340F PARENCHYMAL PATTERN: (D) - The breast(s) demonstrate(s) heterogeneously dense fibroglandular tim laurent. BI-RADS CATEGORY: (0) - 0 Ultrasound [id number] Immediate follow-up LATERALITY: (B)
--- NOTE | 2020-04-09 08:27 | Ultrasound Report ---
LIMITED ULTRASOUND OF RIGHT BREAST: 04/08/2020 CLINICAL: Patient returns for additional imaging over a suspected mass in the right breast. Comparison is made to exams dated: 04/08/2020 mammogram, 02/12/2020 mammogram, and 09/25/2016 mammogram - [facility]. Ultrasound of the right breast 8 o'clock region was performed. There is a benign 1.4 cm irregular simple cyst in the right breast at 7 o'clock posterior depth 8 cm from the nipple. This irregular simple cyst is anechoic with an abrupt boundary and posterior acoust ic enhancement. This correlates with mammography findings. Color flow imaging demonstrates that the re is no vascularity present. IMPRESSION: BENIGN There is no sonographic evidence of malignancy. The 1.4 cm irregular simple cyst in the right breast is benign. Return to annual mammogram screening schedule is recommended. This exam was interpreted at Station ID: [id number]. Electronically Signed By: Cpao Vicente M.D., jr/nikita:04/08/2020 14:13:19 Ultrasound BI-RADS: 2 Benign BI-RADS CATEGORY: (2) - 2 Mammogram [id number] return to screening LATERALITY: (B)
== END 2020-04-08 11:19 | disposition home or self-care (01) ==
LOC: DI 11:18
PROVIDERS: ATTEND Family Medicine
DX: N60.01 Solitary cyst of right breast (principal)
CPT/HCPCS: 76642

== ENCOUNTER 2020-04-29 10:57 | Outpatient (CLI) | payer MEDICARE, MEDICAID ==
--- NOTE | 2020-04-30 09:25 | XRAY Report ---
PROCEDURE: Spine Entire AP/LAT INDICATIONS: SCOLIOSIS,NECK PAIN, LUMBAR RADICULOPATHY, LBP TECHNIQUE: 6 views of the cervical, thoracic, and lumbar spine acquired. COMPARISON: Thoracic spine x-ray 06/04/2015. FINDINGS: Bones: No definite fractures or subluxation. Evaluation limited below the C6-C7 level in the cervica l spine and in the upper thoracic spine on the lateral projection. No suspicious bony lesions. There is a levoscoliosis of the cervicothoracic spine centered at T3-T4 with a Aly angle of approxim ately 18.4 degrees as measured from the superior endplate of T1 and inferior endplate of T6. This selina ears similar given differences in technique to the prior study on which it measured approximately 21 degrees at the same levels. There is a mild leftward curvature of the thoracolumbar spine centered at L2-L3 with a Aly angle of approximately 8.4 degrees as measured from the superior endplate of L1 an d superior endplate of L5. There is minimal anterolisthesis at C5-C6. There are 5 lumbar-type nonrib-bearing vertebrae. Minimal retrolisthesis demonstrated at L2-L3 and L3-L4 as well as minimal anterolisthesis at L4-L5. Mild to m oderate multilevel degenerative disc disease demonstrated throughout the thoracic and lumbar spine as well as the lower cervical spine with disc space narrowing and endplate osteophytosis. There is mild facet arthropathy at L5-S1. Soft tissues: Prevertebral soft tissue is normal in thickness. Visualized lungs are clear. No suspic ious soft tissue calcifications. IMPRESSION: 1. Levoscoliosis of the cervicothoracic spine with a Aly angle of approximately 18.4 is similar to s lightly decreased compared to the prior study. 2. Mild leftward curvature of the lumbar spine. Reviewed by: Edmar Covington MD on 04/30/2020 8:24 AM MAIA Approved by: Edmar Covington MD on 04/30/2020 8:24 AM MAIA Station ID: [id number]
== END 2020-04-29 10:58 | disposition home or self-care (01) ==
LOC: DI 10:57
PROVIDERS: ATTEND Family Medicine
DX: M41.9 Scoliosis, unspecified (principal); M54.2 Cervicalgia; M54.16 Radiculopathy, lumbar region; M54.5 Low back pain
CPT/HCPCS: 72082

== ENCOUNTER 2020-05-31 08:00 | Outpatient (CLI) | payer MEDICARE, MEDICAID | END 2020-05-31 23:59 | disposition home or self-care (01) | LOC: LAB.WCP 08:00 | PROVIDERS: ATTEND Family Medicine | DX: R35.0 Frequency of micturition (principal) | CPT/HCPCS: 81002 ==

== ENCOUNTER 2020-09-10 09:20 | Outpatient (CLI) | payer MEDICARE, MEDICAID | END 2020-09-10 23:59 | disposition home or self-care (01) | LOC: LAB.R 09:20 | PROVIDERS: ATTEND Physician Assistant Medical | DX: R30.0 Dysuria (principal) | CPT/HCPCS: 87077; 87086; 87181 ==

== ENCOUNTER 2020-09-14 09:38 | Outpatient (CLI) | payer MEDICARE, MEDICAID ==
--- NOTE | 2020-09-14 10:10 | SLEEP CARE CONSULTATION ---
Information from patient questionnaire entered by Lora Ponce. I have reviewed and concur with the information entered by Lora Ponce. This document represents the service I personally performed and the decisions made by , Sindi Howard ARNP. History of Present Illness Service Date and Time: 09/14/2020 0938 Previous diagnosis: Mild, Obstructive Sleep Apnea-Hypopnea Syndrome AHI: 11.9 (in 2018) Reason for follow up: annual (last seen 07/2019) Equipment type: CPAP Equipment obtained from: [employer] (getting supplies as needed) Mask style: Nasal Mask brand: Respironics (Dreamwear) Backup mask available: Yes (old mask) Last cushion change: last week Prior sleep studies: Yes Year and Where: 2018 - [facility] HPI additional information: TITI DANIEL was diagnosed to have mild, AHI 11.9, obstructive sleep apnea-hypopnea syndrome and returned today with caregiver for CPAP therapy annual follow-up. CPAP Compliance Data - Data Reviewed with Patient Average duration of nightly device use: 6 hr 33 min Compliance rate %: 95 (180 days) Current pressure setting (cmH2O): 4-8 Humidity settin Heated hose settin Average residual AHI: 2.4 Central apnea: 0.0 Obstructive apnea: 0.4 Hypopnea: 1.9 Average large leak: 2 min 38 sec Subjective Patient concerns: reports: nasal congestion. denies: aerophagia, mask discomfort, air blowing in eyes, mask leak noise, condensation in mask/hose, dry mouth, nose, throat, epistaxis, other Observed to snore while using device: No Current pressure setting perceived as: comfortable On therapy, patient: reports: sleeping better, awakening more refreshed, being more awake and alert during the day, more rested overall. denies: drowsiness while driving (she doesn't drive) Initial [place] Sleepiness Scale score: 11 (in 2018) Current [place] Sleepiness Scale score: 16 Allergies and Home Medications Drug allergies reviewed: Yes (methylperdnisolone) Home medication list reviewed: Yes (gabapentin) Review of Systems Review of systems same as previous: Yes (no changes) Physical Exam Heart Rate: 76 O2 Saturation: 96 Height: 5 ft 3 in Weight: 227 lb Weight change since last visit: 11 Body Mass Index: 40.1 BMI Classification: Morbidly Obese Impression and Plan 1. Obstructive Sleep Apnea-Hypopnea Syndrome, mild, with good treatment compliance and good apnea control. On CPAP therapy, the patient has better sleep quality and is more rested overall. She has regular trouble with nasal congestion but occasionally some with the CPAP and she is unable to use it. Nasal congestion can be reduced with increasing the CPAP humidity as shown on sample device. The heated hose can be adjusted higher if condensation with higher humidity setting. Saline nasal spray sample was also given to use prior to CPAP to clear nasal secretions and wash off any nasal allergens to facilitate nasal breathing. In addition, a steamy shower before bed will often assist nasal drainage. Patient's apnea severity and rationale for treatment to reduce apnea, improve sleep quality and reduce cardiovascular and cerebrovascular events was reviewed. I also reviewed the benefit of consistent device use of CPAP for hypertension and diabetes. 2. Morbid obesity, unspecified. Patient has lost weight. Currently patients BMI is 40.1. Obesity increases the risk of apnea, CPAP pressure requirements and overall health risks especially cardiovascular and diabetes. Thus patient is advised to continue to lose weight. Weight loss can be done with reducing portion size, reducing refined foods and balancing content with vegetables, fruit and whole grain foods. The patient's CPAP pressure range should accommodate some weight loss. Symptoms to report for additional pressure adjustment discussed. * Continue auto CPAP pressure at 4-8 cmH2O * Update supplies * Notify me if snoring with mask or feeling that the pressure is too much or too little * Attempt to lose weight * Call this office if any problems using CPAP * Return for follow up in 1 year, or sooner if concerns arise Counseling Topics: Spare mask, Weight loss health impact Visit Type: In Office Time Spent with Patient (minutes): 18 Provider Statement: I spent 100% of the Face to Face Visit with the patient with greater than 50% spent counseling the patient and coordination of care.
== END 2020-09-14 09:39 | disposition home or self-care (01) ==
LOC: SC 09:38
PROVIDERS: ATTEND Nurse Practitioner Family
DX: G47.33 Obstructive sleep apnea (adult) (pediatric) (principal); E66.01 Morbid (severe) obesity due to excess calories; Z68.41 Body mass index [BMI] 40.0-44.9, adult
CPT/HCPCS: 99212; G0463

== ENCOUNTER 2020-09-29 08:00 | Outpatient (CLI) | payer MEDICARE, MEDICAID ==
[2020-09-29 18:18] LABS: BASOPHILS # (AUTO) 0.1 10^3/uL (0.0-0.1); BASOPHILS % (AUTO) 1.1 %; EOSINOPHILS # (AUTO) 0.1 10^3/uL (0.0-0.7); EOSINOPHILS % (AUTO) 2.6 %; HGB - HEMOGLOBIN 13.3 g/dL (12.0-16.0); LYMPHOCYTES # (AUTO) 1.5 10^3/uL (1.5-3.5); LYMPHOCYTES % (AUTO) 32.9 %; MEAN CORPUSCULAR HEMOGLOBIN 29.4 pg (27.0-31.0); MEAN CORPUSCULAR HGB CONC 30.9 g/dL (32.0-36.0); MEAN CORPUSCULAR VOLUME 95.1 fL (81.0-99.0); MEAN PLATELET VOLUME 11.3 fL (7.9-10.8); MONOCYTES # (AUTO) 0.4 10^3/uL (0.0-1.0); MONOCYTES % (AUTO) 7.7 %; NEUTROPHILS # (AUTO) 2.5 10^3/uL (1.5-6.6); NEUTROPHILS % (AUTO) 55.5 %; PLT - PLATELET COUNT 284 10^3/uL (130-450); RED BLOOD COUNT 4.52 10^6/uL (4.20-5.40); RED CELL DISTRIBUTION WIDTH 13.7 % (12.0-15.0); WHITE BLOOD COUNT 4.5 x10^3/uL (4.8-10.8)
[2020-09-29 18:52] LABS: ALBUMIN 3.8 g/dL (3.2-5.5); ALBUMIN/GLOBULIN RATIO 1.2 (1.0-2.2); ALKALINE PHOSPHATASE 69 IU/L (42-121); ALT ALANINE AMINOTRANSFERASE 25 IU/L (10-60); AST ASPARTATE AMINOTRANSFERASE 19 IU/L (10-42); BILIRUBIN,TOTAL 0.5 mg/dL (0.2-1.0); BUN - BLOOD UREA NITROGEN 16 mg/dL (6-20); CALCIUM 9.2 mg/dL (8.5-10.3); CARBON DIOXIDE - CO2 25 mmol/L (21-32); CHLORIDE 102 mmol/L (101-111); CHOL/HDL RATIO 3.9 (<4.4); CHOLESTEROL 185 mg/dL; CREATININE 0.7 mg/dL (0.4-1.0); GFR - MDRD 85 (>89); GLUCOSE 243 mg/dL (70-100); HDL CHOLESTEROL 47 mg/dL; LDL CHOLESTEROL,CALCULATED 67 mg/dL; LDL/HDL RATIO 1.4 (<4.4); POTASSIUM 4.1 mmol/L (3.5-5.0); SODIUM 136 mmol/L (135-145); TOTAL PROTEIN 6.9 g/dL (6.7-8.2); TRIGLYCERIDES 355 mg/dL; VLDL CHOLESTEROL 71 mg/dL
[2020-09-29 19:02] LABS: ESTIMATED AVERAGE GLUCOSE 180 mg/dL (70-100); HEMOGLOBIN A1c% 7.9 % (4.27-6.07)
[2020-09-29 19:05] LABS: THYROID STIMULATING HORMONE 0.31 uIU/mL (0.34-5.60)
[2020-09-29 20:13] LABS: FREE T4 (FREE THYROXINE) 1.12 ng/dL (0.58-1.64)
== END 2020-09-29 23:59 | disposition home or self-care (01) ==
LOC: LAB.WCP 08:00
PROVIDERS: ATTEND Family Medicine
DX: E11.9 Type 2 diabetes mellitus without complications (principal)
CPT/HCPCS: 36415; 80053; 80061; 83036; 83721; 84439; 84443; 85025

== ENCOUNTER 2020-10-19 07:38 | Outpatient (CLI) | payer MEDICARE, MEDICAID ==
--- NOTE | 2020-10-19 09:56 | Ultrasound Report ---
PROCEDURE: Abdomen Complete INDICATIONS: ABDOMINAL PAIN TECHNIQUE: Real-time scanning was performed of the abdominal and retroperitoneal organs, with image documentatio n. COMPARISON: 01/16/[address] dated 03/08/2017. FINDINGS: Liver: Liver is increased in size and demonstrates diffusely increased hepatic echotexture. No focal intrahepatic abnormalities. There is also coarsened hepatic echotexture. Gallbladder: Gallbladder is normal in appearance without gallstones, wall thickening, pericholecystic fluid, or abnormal sonographic Vidal's. Biliary ducts: Intrahepatic bile ducts are non-dilated. Extrahepatic bile duct caliber measures 10 mm. Normal is 6-7 mm or less in diameter, or 10 mm or less post-cholecystectomy. Pancreas: Visualized portions of the pancreas are sonographically normal. Spleen: Spleen is normal in size and homogeneous in echotexture. Kidneys: Kidneys are normal in size and echotexture. Right kidney measures 12.9 cm long; left kidne y measures 12.3 cm long. No hydronephrosis or nephrolithiasis. No solid masses. Aorta: Redemonstration of distal infrarenal abdominal aortic aneurysm measuring 4.5 x 4.3 cm in snu sverse dimension. Visualized portions of the proximal abdominal aorta is normal in caliber at less th an 3 cm. Iliacs: Common iliac arteries not visualized secondary to bowel gas. IVC: Intrahepatic inferior vena cava is patent. Miscellaneous: No free abdominal fluid. IMPRESSION: 1. Diffuse hepatic steatosis. 2. Prominence of the common bile duct measuring up to 10 mm in diameter. 3. Normal appearance of the gallbladder. 4. Stable appearance and size of infrarenal/distal abdominal aortic aneurysm measuring up to 4.5 cm i n size. 5. No evidence for obstructive uropathy. Reviewed by: Gabriele Tejada MD on 10/19/2020 9:55 AM PDT Approved by: Gabriele Tejada MD on 10/19/2020 9:55 AM PDT Station ID: [id number]
== END 2020-10-19 07:39 | disposition home or self-care (01) ==
LOC: DI 07:38
PROVIDERS: ATTEND Family Medicine
DX: K76.0 Fatty (change of) liver, not elsewhere classified (principal); K83.8 Other specified diseases of biliary tract; I71.4 Abdominal aortic aneurysm, without rupture

== ENCOUNTER 2021-04-21 08:00 | Outpatient (CLI) | payer MEDICARE, MEDICAID ==
[2021-04-21 12:28] LABS: ALBUMIN 4.2 g/dL (3.2-5.5); ALBUMIN/GLOBULIN RATIO 1.4 (1.0-2.2); ALKALINE PHOSPHATASE 65 IU/L (42-121); ALT ALANINE AMINOTRANSFERASE 30 IU/L (10-60); AST ASPARTATE AMINOTRANSFERASE 20 IU/L (10-42); BILIRUBIN,TOTAL 0.7 mg/dL (0.2-1.0); BUN - BLOOD UREA NITROGEN 13 mg/dL (6-20); CALCIUM 9.7 mg/dL (8.5-10.3); CARBON DIOXIDE - CO2 28 mmol/L (21-32); CHLORIDE 105 mmol/L (101-111); CHOL/HDL RATIO 3.9 (<4.4); CHOLESTEROL 196 mg/dL; CREATININE 0.6 mg/dL (0.4-1.0); GFR - MDRD 101 (>89); GLUCOSE 164 mg/dL (70-100); HDL CHOLESTEROL 50 mg/dL; LDL CHOLESTEROL,CALCULATED 85 mg/dL; LDL/HDL RATIO 1.7 (<4.4); POTASSIUM 4.7 mmol/L (3.5-5.0); SODIUM 143 mmol/L (135-145); TOTAL PROTEIN 7.2 g/dL (6.7-8.2); TRIGLYCERIDES 303 mg/dL; VLDL CHOLESTEROL 61 mg/dL
[2021-04-21 12:37] LABS: ESTIMATED AVERAGE GLUCOSE 154 mg/dL (70-100)
== END 2021-04-21 23:59 | disposition home or self-care (01) ==
LOC: LAB.WCP 08:00
PROVIDERS: ATTEND Family Medicine
DX: E11.9 Type 2 diabetes mellitus without complications (principal)
CPT/HCPCS: 36415; 80053; 80061; 83036; 83721

== ENCOUNTER 2021-09-28 19:45 | Emergency (ER) | payer MEDICARE, MEDICAID ==
[2021-09-28 20:26] LABS: BASOPHILS % (AUTO) 0.3 %; EOSINOPHILS % (AUTO) 0.3 %; HCT - HEMATOCRIT 40.8 % (37.0-47.0); HGB - HEMOGLOBIN 14.2 g/dL (12.0-16.0); LYMPHOCYTES # (AUTO) 1.2 10^3/uL (1.5-3.5); LYMPHOCYTES % (AUTO) 10.1 %; MEAN CORPUSCULAR HEMOGLOBIN 31.3 pg (27.0-31.0); MEAN CORPUSCULAR HGB CONC 34.8 g/dL (32.0-36.0); MEAN CORPUSCULAR VOLUME 90.1 fL (81.0-99.0); MEAN PLATELET VOLUME 10.3 fL (7.9-10.8); MONOCYTES # (AUTO) 1.2 10^3/uL (0.0-1.0); MONOCYTES % (AUTO) 10.7 %; NEUTROPHILS % (AUTO) 78.3 %; PLT - PLATELET COUNT 222 10^3/uL (130-450); RED BLOOD COUNT 4.53 10^6/uL (4.20-5.40); RED CELL DISTRIBUTION WIDTH 12.6 % (12.0-15.0); WHITE BLOOD COUNT 11.5 x10^3/uL (4.8-10.8)
[2021-09-28] MEDS ORDERED: HYDROmorphone 1 MG/ML CARPUJECT IVP STA ×2 (20:29→21:13)
[2021-09-28] MEDS ORDERED: SODIUM CHLORIDE 0.9% 1,000 ML IV STA (20:29)
[2021-09-28 20:37] LABS: ALBUMIN 4.2 g/dL (3.2-5.5); ALBUMIN/GLOBULIN RATIO 1.2 (1.0-2.2); BILIRUBIN,TOTAL 0.6 mg/dL (0.2-1.0); CALCIUM 9.5 mg/dL (8.5-10.3); CREATININE 0.6 mg/dL (0.4-1.0); TOTAL PROTEIN 7.6 g/dL (6.7-8.2)
--- NOTE | 2021-09-28 20:37 | ED Physician Documentation ---
PD HPI ABD PAIN - Stated complaint Stated Complaint: ABD PX - Chief complaint Chief Complaint: Abd Pain - History obtained from History obtained from: Patient - History of Present Illness Timing - onset: Yesterday Timing - duration: Days (2) Timing - details: Gradual onset Pain level max: 10 Pain level now: 10 Quality: Aching, Pain Location: All over / everywhere Associated symptoms: No: Fever, Nausea, Vomiting, Hematemesis, Diarrhea, Constipation, Melena, Hematochezia, Dysuria, Hematuria, Chest pain Similar symptoms before: Diagnosis (has had AAA) - Additional information Additional information: Patient is a 65-year-old female presents to the emergency department gradual onset of abdominal pain since yesterday. She states gradually worsening today. She states that it is all over. Feels better when she is standing and walking. Worse with lying down or standing still. She states she has a history of a small AAA. She does not know the size. Has never been referred for potential surgical intervention. No fevers. No chills. No nausea or vomiting or diarrhea or constipation. Review of Systems Ten Systems: 10 systems reviewed and negative Constitutional: denies: Fever, Chills Nose: denies: Rhinorrhea / runny nose, Congestion Respiratory: denies: Cough GI: denies: Nausea, Vomiting, Diarrhea Skin: denies: Rash Musculoskeletal: denies: Neck pain, Back pain Neurologic: denies: Headache PD PAST MEDICAL HISTORY - Past Medical History Cardiovascular: Hypertension, High cholesterol, Other Respiratory: Asthma, COPD, Shortness of breath Neuro: Other Endocrine/Autoimmune: Type 2 diabetes, HyPOthyroidism GI: GERD : Incontinence, Other Psych: Depression Musculoskeletal: Osteoarthritis, Scoliosis, Chronic back pain Derm: Other - Past Surgical History 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 - Present Medications Home Medications: Ambulatory Orders Medication Instructions Recorded Confirmed Acetaminophen [Tylenol] 650 mg PO TID PRN 01/28/18 05/12/21 Levothyroxine Sodium 150 mcg PO DAILY 01/28/18 05/12/21 Nystatin 1 applic TOP DAILY PRN 01/28/18 05/12/21 lisinopriL [Lisinopril] 20 mg PO DAILY 01/28/18 05/12/21 Albuterol Sulf [Ventolin Hfa 2 puffs INH Q6H PRN 02/15/18 05/12/21 Inhaler] Albuterol Sulf [Ventolin Hfa 1 - 2 puffs INH Q4HR PRN 05/12/21 05/12/21 Inhaler] Amitriptyline [Elavil] 10 mg PO QPM 05/12/21 05/12/21 Atorvastatin Calcium 40 mg PO QPM 05/12/21 05/12/21 Celecoxib [Celebrex] 200 mg PO DAILY 05/12/21 05/12/21 Cholecalciferol [Vitamin D3] 25 mcg PO DAILY 05/12/21 05/12/21 Fluticasone [Flonase] 1 sprays BLANCO BID PRN 05/12/21 05/12/21 Gabapentin [Neurontin] 300 mg PO HS 05/12/21 05/12/21 Glimepiride [Amaryl] 2 mg PO 0800 05/12/21 05/12/21 metFORMIN [Glucophage] 1,000 mg PO BIDWM 05/12/21 05/12/21 Amox/Clav 875/125 [Augmentin] 1 each PO Q8H #30 tablet 09/28/21 Ondansetron Odt [Zofran] 4 mg TL Q6H PRN #10 tablet 09/28/21 Oxycodone HCl/Acetaminophen 1 - 2 each PO Q6H PRN #14 tablet 09/28/21 [Percocet 5-325 mg Tablet] - Allergies Allergies/Adverse Reactions: Allergies Allergy/AdvReac Type Severity Reaction Status Date / Time methylprednisolone Allergy critical Verified 02/15/18 16:40 wool AdvReac Itching Verified 05/12/21 15:12 - Social History Does the pt smoke?: Yes Smoking Status: Current every day smoker Does the pt drink ETOH?: Yes Does the pt have substance abuse?: No - Immunizations Immunizations are current?: Yes - POLST Patient has POLST: No POLST Status: Full Code (Pt said that she has a lot to live for and is "only 62 years old", she wants to make a lot of changes in her life (starting with quitting smoking), no POLST currently, but would want daughter to make decisions for her if necessary, pt encouraged to fill out POLST before leaving hospital or with PCP in the future) PD ED PE NORMAL - Vitals Vital signs reviewed: Yes - General General: Alert and oriented X 3, No acute distress - HEENT HEENT: Moist mucous membranes - Neck Neck: Supple, no meningeal sign - Cardiac Cardiac: RRR, Strong equal pulses - Respiratory Respiratory: No respiratory distress, Clear bilaterally - Abdomen Abdomen: Soft, Other (diffusely tender to palpation, no peritoneal signs.) - Derm Derm: Warm and dry - Extremities Extremities: No edema - Neuro Neuro: Alert and oriented X 3 - Psych Psych: Normal mood, Normal affect Results - Vitals Vitals: Vital Signs - 24 hr 09/28/21 09/28/21 09/28/21 20:04 20:14 20:40 Temperature 36.9 C Heart Rate 102 H 110 H 108 H Respiratory 20 14 22 Rate Blood Pressure 146/98 H 143/88 H O2 Saturation 95 97 95 09/28/21 09/28/21 09/28/21 21:07 21:35 22:17 Temperature Heart Rate 83 100 89 Respiratory 20 20 14 Rate Blood Pressure 161/88 H 130/96 H O2 Saturation 95 95 94 09/29/21 09/29/21 09/29/21 00:21 01:00 01:31 Temperature 37 C Heart Rate 84 85 87 Respiratory 20 18 20 Rate Blood Pressure 103/85 H 141/77 H 141/84 H O2 Saturation 95 95 97 Oxygen O2 Source Room air - Labs Labs: Laboratory Tests 09/28/21 09/28/21 09/28/21 20:20 20:20 20:35 WBC 11.5 H RBC 4.53 Hgb 14.2 Hct 40.8 MCV 90.1 MCH 31.3 H MCHC 34.8 RDW 12.6 Plt Count 222 MPV 10.3 Neut # (Auto) 9.0 H Lymph # (Auto) 1.2 L [place] # (Auto) 1.2 H Eos # (Auto) 0.0 Baso # (Auto) 0.0 Absolute Nucleated RBC 0.00 Nucleated RBC % 0.0 Sodium 137 Potassium 4.0 Chloride 101 Carbon Dioxide 23 Anion Gap 13.0 BUN 8 Creatinine 0.6 Estimated GFR (MDRD) 101 Glucose 176 H Calcium 9.5 Total Bilirubin 0.6 AST 15 ALT 21 Alkaline Phosphatase 71 Total Protein 7.6 Albumin 4.2 Globulin 3.4 Albumin/Globulin Ratio 1.2 Lipase 28 Urine Color YELLOW Urine Clarity CLEAR Urine pH 7.0 Ur Specific Gilchrist 1.010 Urine Protein NEGATIVE Urine Glucose (UA) NEGATIVE Urine Ketones NEGATIVE Urine Occult Blood NEGATIVE Urine Nitrite NEGATIVE Urine Bilirubin NEGATIVE Urine Urobilinogen 0.2 (NORMAL) Ur Leukocyte Esterase NEGATIVE Ur Microscopic Review NOT INDICATED Urine Culture Comments NOT INDICATED - Rads (name of study) CT angio abd/pelvis Radiology: Final report received, EMP read contemporaneously, See rad report PD MEDICAL DECISION MAKING - ED course Complexity details: reviewed results, re-evaluated patient, considered differential, d/w patient ED course: Abdominal pain well controlled. Abdominal aortic aneurysm appears stable from ultrasound imaging. She does appear to have left lower quadrant diverticulitis without perforation or abscess. We will start on antibiotics and pain medication for home. We will have her follow-up with her doctor for further care. I am prescribing a short course of short-acting opioid pain medication for this patient. 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 I have discussed that the opioids are for short term therapy only, and will not be refilled from the ED. patient counseled regarding signs and symptoms for which I believe and urgent re-evaluation would be necessary. Patient with good understanding of and agreement to plan and is comfortable going home at this time This document was made in part using voice recognition software. While efforts are made to proofread this document, sound alike and grammatical errors may occur. Departure - Departure Disposition: 01 Home, Self Care Clinical Impression: Acute diverticulitis AAA (abdominal aortic aneurysm) Qualifiers: Presence of rupture: without rupture Qualified Code(s): I71.4 - Abdominal aortic aneurysm, without rupture Condition: Good Instructions: ED Diverticulitis, ED Aneurysm Abdominal Aortic Stable Follow-Up: Rakan Fried DO [Primary Care Provider] - Within 1 week Prescriptions: Amox/Clav 875/125 [Augmentin] 1 each PO Q8H #30 tablet Oxycodone HCl/Acetaminophen [Percocet 5-325 mg Tablet] 1 - 2 each PO Q6H PRN #14 tablet PRN Reason: pain Ondansetron Odt [Zofran] 4 mg TL Q6H PRN #10 tablet PRN Reason: Nausea / Vomiting Comments: Your prescriptions were sent to [facility] in [place]. Take all antibiotics until gone. Return if you worsen. Follow-up with your doctor for further care. Your abdominal aortic aneurysm appears stable at around 4.5 cm. If you begin to develop fevers or worsening pain, please return for further evaluation. I am prescribing a short course of narcotic pain medication for you. These are potentially dangerous and addictive medications that should be used carefully. These medications may constipate you. Take an cycz-ihs-acehtsz stool softener (docusate) twice daily with plenty of water while taking these medications. If you go 24 hours without a bowel movement, take hobe-xwk-gdmiuhs miralax, per package instructions. Do not drink or drive while taking these medications. If you received narcotic or sedating medications while in the emergency department, do not drive for 24 hours. Store this medication in a safe, secure place and out of reach of children. It is a violation of federal law to give or sell this medication to another person or to use in a manner other than prescribed. The ED will not refill narcotic prescriptions, including prescriptions lost or stolen. To dispose of unwanted medications: 1. [facility] at [address] [facility] in [place] has a medication drop box. They accept prescription medications (in pill form) Sunday through Sunday 9:00 a.m. to 5:00 p.m. 2. [facility] accepts prescription medications (in pill form only) for disposal year round. Call for more information. 3. Contact the [facility] for the next [facility] sponsored prescription drug collection event. , [phone], or [phone]; Discharge Date/Time: 09/29/21 01:30
[2021-09-28] MEDS ORDERED: IOVERSOL 320 100 ML VIAL IVP ONE ×2 (20:42→21:27)
[2021-09-28 20:43] LABS: BILIRUBIN,URINE NEGATIVE (NEGATIVE); GLUCOSE, URINE (UA) NEGATIVE (NEGATIVE); KETONES,URINE (UA) NEGATIVE (NEGATIVE); LEUKOCYTE ESTERASE, URINE NEGATIVE (NEGATIVE); NITRITE,URINE NEGATIVE (NEGATIVE); OCCULT BLOOD,URINE NEGATIVE (NEGATIVE); PROTEIN,URINE NEGATIVE (NEGATIVE); UROBILINOGEN,URINE 0.2 (NORMAL) E.U./dL (NORMAL)
[2021-09-28 20:49] LABS: CLARITY,URINE CLEAR (CLEAR)
[2021-09-28] MEDS ORDERED: AMOX/CLAV 875 MG/125 MG TABLET PO STA (21:37)
[2021-09-28] MEDS ORDERED: oxyCODONE 5 MG TABLET PO STA (21:45)
[2021-09-28] MEDS ORDERED: ONDANSETRON 4 MG/2 ML VIAL IVP STA (22:56)
--- NOTE | 2021-09-28 23:21 | CT Report ---
PROCEDURE: ANGIO ABDOMEN/PELVIS W INDICATIONS: diffuse abd pain, h/o AAA CONTRAST: IV CONTRAST: Optiray 320 ml: 100 PO CONTRAST: *NO PO CONTRAST TECHNIQUE: After the administration of intravenous contrast, 2.5 mm thick sections acquired from the diaphragm t o the symphysis. 10 mm maximum-intensity projection (MIP) reformats were then acquired. For radiati on dose reduction, the following was used: automated exposure control. COMPARISON: CT abdomen/pelvis 03/08/2017, abdominal ultrasound 10/19/2020 FINDINGS: Image quality: Excellent. Aorta: There is a fusiform aneurysm of the abdominal aorta beginning just below the level of the rig ht renal artery and measuring up to 4.9 x 4.9 cm in diameter. Mural thrombus is seen at the superior margin. Scattered atherosclerotic calcifications are noted. No signs of or acute aortic rupture or di ssection. Mesenteric arteries: Celiac trunk and superior mesenteric artery appear patent. The inferior mesenter ic artery arises from the aneurysm sac with atherosclerotic calcifications and suspected narrowing at the origin. The renal arteries are patent bilaterally. Right pelvic arteries: Mild to moderate scattered atherosclerotic calcifications are seen in the rig ht common, external, and internal iliac arteries without high-grade stenosis. Left pelvic arteries: Mild to moderate scattered atherosclerotic calcifications are seen in the left common, external, and internal iliac arteries without high-grade stenosis. Extravascular soft tissues: Lung bases are clear. Heart size is normal. Liver liver is diffusely h ypoattenuating, consistent with fatty infiltration. Gallbladder is unremarkable. Spleen is normal in size. Biliary system is non dilated. Pancreas enhances normally. No adrenal nodules. Kidneys are n ormal in size and enhancement, without hydronephrosis. Diverticula are seen in the colon. There is bowel wall thickening and inflammatory fat stranding surr ounding a diverticulum in the proximal sigmoid colon, consistent with acute diverticulitis. No focal fluid collection or pneumoperitoneum is seen. No signs of bowel obstruction. No free fluid or air. N o retroperitoneal or mesenteric adenopathy. No ventral hernias. No suspicious bony lesions. No chong tebral body compression fractures. Multilevel degenerative changes are seen in the spine. IMPRESSION: 1.Acute uncomplicated sigmoid diverticulitis. 2.Fusiform abdominal aortic aneurysm measures up to 4.9 x 4.9 cm in diameter, which has increased whe n compared to the ultrasound from 10/19/2020. No signs of acute rupture or dissection. Reviewed by: Markus Lang MD on 09/28/2021 11:22 PM PST Approved by: Markus Lang MD on 09/28/2021 11:22 PM PST Station ID: [id number]
[2021-09-29 01:35] VITALS: BP 141/84
== END 2021-09-29 01:30 | disposition home or self-care (01) ==
LOC: ED 19:45
DX: K57.32 Diverticulitis of large intestine without perforation or abscess without bleeding (principal); I71.4 Abdominal aortic aneurysm, without rupture; F17.200 Nicotine dependence, unspecified, uncomplicated
CPT/HCPCS: 36415; 74174; 80053; 81003; 83690; 85025; 96374; 96375; 96376; 99284; A9270; J1170; Q9967; 81001; 87086

== ENCOUNTER 2021-10-01 12:36 | Outpatient (CLI) | payer MEDICARE, MEDICAID ==
[2021-10-01 17:08] LABS: ALBUMIN 3.7 g/dL (3.2-5.5); ALBUMIN/GLOBULIN RATIO 1.1 (1.0-2.2); BILIRUBIN,TOTAL 0.4 mg/dL (0.2-1.0); CALCIUM 9.1 mg/dL (8.5-10.3); CREATININE 0.7 mg/dL (0.4-1.0); POTASSIUM 4.6 mmol/L (3.5-5.0)
== END 2021-10-01 12:37 | disposition home or self-care (01) ==
LOC: LAB.N 12:36
PROVIDERS: ATTEND Family Medicine
DX: E11.9 Type 2 diabetes mellitus without complications (principal)
CPT/HCPCS: 36415; 80053

== ENCOUNTER 2021-12-30 08:00 | Outpatient (CLI) | payer MEDICARE, MEDICAID | END 2021-12-30 23:59 | disposition home or self-care (01) | LOC: LAB.N 08:00 | PROVIDERS: ATTEND Physician Assistant Medical | DX: R30.0 Dysuria (principal) | CPT/HCPCS: 87086 ==

== ENCOUNTER 2022-01-17 15:06 | Outpatient (CLI) | payer MEDICARE, MEDICAID ==
--- NOTE | 2022-01-18 10:34 | XRAY Report ---
PROCEDURE: Sacrum/Coccyx INDICATIONS: SACRAL BACK PAIN TECHNIQUE: 3 views of the sacrum and coccyx acquired. COMPARISON: None. FINDINGS: Bones: No fractures or dislocations. No suspicious bony lesions. Degenerative disc and facet disea se involving the lower lumbar spine. Soft tissues: Visualized bowel gas pattern is normal. No suspicious soft tissue densities. IMPRESSION: Degenerative disc and facet disease involving the lower lumbar spine; otherwise no acute bony abnorma lity. Reviewed by: SO Edmond on 01/18/2022 10:33 AM PDT Approved by: Inez Russell MD on 01/18/2022 10:33 AM PDT Station ID: [id number]
--- NOTE | 2022-01-18 10:37 | XRAY Report ---
PROCEDURE: Cervical Spine 2 View INDICATIONS: NECK PAIN TECHNIQUE: 3 view(s) of the cervical spine were acquired. COMPARISON: Spine entire, AP/lateral, 04/24/2020. FINDINGS: Bones: No fractures or dislocations to the T1 level. The lateral masses of C1 appear intact on the odontoid view. No suspicious bony lesions. Loss of the normal cervical lordosis. Multilevel disc he ight loss with endplate sclerosis and spurring, most notably and moderate to severe at the C5-C6, C6- C7 and C7-T1 levels. Mild multilevel mid and lower cervical spine facet joint arthropathy and uncover tebral hypertrophy Soft tissues: No prevertebral soft tissue swelling. IMPRESSION: Loss of lordosis and multilevel spondylosis. Reviewed by: SO Edmond on 01/18/2022 10:36 AM PDT Approved by: Inez Russell MD on 01/18/2022 10:36 AM PDT Station ID: [id number]
--- NOTE | 2022-01-18 13:26 | XRAY Report ---
PROCEDURE: Wrist 3 View BILAT INDICATIONS: DJD,WRISTS,BILATERAL TECHNIQUE: 3 views of the wrist were acquired. COMPARISON: None FINDINGS: Bones: No fractures or dislocations. No suspicious bony lesions. Minimal radiocarpal narrowing is present. No erosions or periarticular osteophytes. Scaphoid view: No visualized fracture. Soft tissues: No suspicious soft tissue calcifications. IMPRESSION: Minimal radiocarpal arthritic narrowing without erosions. Reviewed by: Karly Hampton MD on 01/18/2022 1:24 PM PDT Approved by: Karly Hampton MD on 01/18/2022 1:24 PM PDT Station ID: [id number]
== END 2022-01-17 15:07 | disposition home or self-care (01) ==
LOC: DI 15:06
PROVIDERS: ATTEND Nurse Practitioner
DX: M19.032 Primary osteoarthritis, left wrist (principal); M19.031 Primary osteoarthritis, right wrist; M47.812 Spondylosis without myelopathy or radiculopathy, cervical region; M50.322 Other cervical disc degeneration at C5-C6 level; M47.816 Spondylosis without myelopathy or radiculopathy, lumbar region; M51.36 Other intervertebral disc degeneration, lumbar region

== ENCOUNTER 2022-02-07 08:44 | Outpatient (CLI) | payer MEDICARE, MEDICAID ==
[2022-02-07 13:08] LABS: BASOPHILS # (AUTO) 0.1 10^3/uL (0.0-0.1); BASOPHILS % (AUTO) 1.5 %; EOSINOPHILS # (AUTO) 0.1 10^3/uL (0.0-0.7); EOSINOPHILS % (AUTO) 2.4 %; HCT - HEMATOCRIT 44.2 % (37.0-47.0); HGB - HEMOGLOBIN 14.3 g/dL (12.0-16.0); LYMPHOCYTES # (AUTO) 1.3 10^3/uL (1.5-3.5); LYMPHOCYTES % (AUTO) 32.1 %; MEAN CORPUSCULAR HEMOGLOBIN 29.9 pg (27.0-31.0); MEAN CORPUSCULAR HGB CONC 32.4 g/dL (32.0-36.0); MEAN CORPUSCULAR VOLUME 92.5 fL (81.0-99.0); MEAN PLATELET VOLUME 10.9 fL (7.9-10.8); MONOCYTES # (AUTO) 0.4 10^3/uL (0.0-1.0); MONOCYTES % (AUTO) 9.7 %; NEUTROPHILS # (AUTO) 2.2 10^3/uL (1.5-6.6); NEUTROPHILS % (AUTO) 54.1 %; PLT - PLATELET COUNT 232 10^3/uL (130-450); RED BLOOD COUNT 4.78 10^6/uL (4.20-5.40); RED CELL DISTRIBUTION WIDTH 13.2 % (12.0-15.0); WHITE BLOOD COUNT 4.1 x10^3/uL (4.8-10.8)
[2022-02-07 13:26] LABS: ALBUMIN 4.3 g/dL (3.2-5.5); ALBUMIN/GLOBULIN RATIO 1.5 (1.0-2.2); ALKALINE PHOSPHATASE 59 IU/L (42-121); ALT ALANINE AMINOTRANSFERASE 27 IU/L (10-60); AST ASPARTATE AMINOTRANSFERASE 24 IU/L (10-42); BILIRUBIN,TOTAL 0.6 mg/dL (0.2-1.0); BUN - BLOOD UREA NITROGEN 13 mg/dL (6-20); CALCIUM 9.6 mg/dL (8.5-10.3); CARBON DIOXIDE - CO2 26 mmol/L (21-32); CHLORIDE 102 mmol/L (101-111); CHOL/HDL RATIO 4.2 (<4.4); CHOLESTEROL 196 mg/dL; CREATININE 0.6 mg/dL (0.4-1.0); GFR - MDRD 101 (>89); GLUCOSE 160 mg/dL (70-100); HDL CHOLESTEROL 47 mg/dL; LDL CHOLESTEROL,CALCULATED 76 mg/dL; LDL/HDL RATIO 1.6 (<4.4); POTASSIUM 4.4 mmol/L (3.5-5.0); SODIUM 138 mmol/L (135-145); TOTAL PROTEIN 7.2 g/dL (6.7-8.2); TRIGLYCERIDES 367 mg/dL; VLDL CHOLESTEROL 73 mg/dL
[2022-02-07 13:34] LABS: THYROID STIMULATING HORMONE 1.52 uIU/mL (0.34-5.60)
[2022-02-07 13:38] LABS: CREATININE,URINE 58.4 mg/dL; MICROALBUM/CREATININE RATIO,UR 5.1 ug/mg (<30.0); MICROALBUMIN,URINE 0.3 mg/dL (0-300.0)
[2022-02-07 14:32] LABS: ESTIMATED AVERAGE GLUCOSE 166 mg/dL (70-100); HEMOGLOBIN A1c% 7.4 % (4.27-6.07)
== END 2022-02-07 08:45 | disposition home or self-care (01) ==
LOC: LAB.N 08:44
PROVIDERS: ATTEND Nurse Practitioner Family
DX: I10 Essential (primary) hypertension (principal); E66.01 Morbid (severe) obesity due to excess calories; E78.5 Hyperlipidemia, unspecified; E11.9 Type 2 diabetes mellitus without complications
CPT/HCPCS: 36415; 80053; 80061; 82043; 82570; 83036; 83721; 84443; 85025

== ENCOUNTER 2022-03-22 09:39 | Outpatient (CLI) | payer MEDICARE, MEDICAID ==
--- NOTE | 2022-03-22 12:48 | DEXA Report ---
PROCEDURE: Dexa Spine and/or Hip INDICATIONS: POSTMENOPAUSAL TECHNIQUE: Dual energy x-ray absorptiometry (DXA) was performed on a 5to1 System. Regions measur ed are the AP Spine, femoral neck, and if needed forearm. COMPARISON: None. FINDINGS: Lumbar Spine: Bone Mineral Density 1.1-2 g/cm/cm,T score -0.5, normal Left total Hip: Bone Mineral Density 1.059 g/cm/cm,T score 0.4, normal Left Femoral Neck: Bone Mineral Density 0.967 g/cm/cm, T score -0.5, normal (T score greater or equal to -1.0: NORMAL) (T score from -1.1 to -2.4: OSTEOPENIA) (T score less than or equal to -2.5 to: OSTEOPOROSIS) Impression: Normal bone mineral density. Patients with diagnosis of osteoporosis or osteopenia should have regular bone mineral density assess ment. For those eligible for Medicare, routine testing is allowed once every 2 years. Testing frequ ency can be increased for patients who have rapidly progressing disease or for those who are receivin g medical therapy to restore bone mass. Reviewed by: Jose Chao on 03/22/2022 12:47 PM PDT Approved by: Jose Chao on 03/22/2022 12:47 PM PDT Station ID: [id number]
== END 2022-03-22 09:40 | disposition home or self-care (01) ==
LOC: DI 09:39
PROVIDERS: ATTEND Nurse Practitioner Family
DX: Z78.0 Asymptomatic menopausal state (principal)

== ENCOUNTER 2022-03-22 09:40 | Outpatient (CLI) | payer MEDICARE, MEDICAID ==
--- NOTE | 2022-03-23 10:36 | Mammography Report ---
BILATERAL DIGITAL SCREENING MAMMOGRAM 3D/2D: 03/22/2022 CLINICAL: Routine screening. Comparison is made to exams dated: 04/08/2020 mammogram, 09/25/2016 mammogram, 02/12/2020 mammogram, and 04/08/2020 ultrasound - [facility]. Both breasts are heterogeneously dense, which may obscure small masses (category c / 51-75% glandula r tissue). No significant masses, calcifications, or other findings are seen in either breast. There has been no significant interval change. IMPRESSION: NEGATIVE There is no mammographic evidence of malignancy. A 1 year screening mammogram is recommended. This exam was interpreted at Station ID: [id number]. NOTE: For mammograms, a report in lay terms will be sent to the patient. Approximately 15% of breast malignancies will not be visualized mammographically. In the management of a palpable breast mass, a negative mammogram must not discourage biopsy of a clinically suspicious lesion. Electronically Signed By: Capo Vicente M.D., jr/nikita:03/22/2022 12:38:48 ACR BI-RADS Category 1: Negative 3341F PARENCHYMAL PATTERN: (D) - The breast(s) demonstrate(s) heterogeneously dense fibroglandular tim laurent. BI-RADS CATEGORY: (1) - 1 RECOMMENDATION: (ANNUAL) - Recommend routine annual screening mammography. [id number] 1 year screening LATERALITY: (B)
== END 2022-03-22 09:41 | disposition home or self-care (01) ==
LOC: DI 09:40
PROVIDERS: ATTEND Nurse Practitioner Family
DX: Z12.31 Encounter for screening mammogram for malignant neoplasm of breast (principal)

== ENCOUNTER 2022-05-02 12:50 | Emergency (ER) | payer MEDICARE, MEDICAID ==
[2022-05-02 13:07] VITALS: BP 149/70
[2022-05-02] MEDS ORDERED: MELOXICAM 7.5 MG TABLET PO STA (14:36)
[2022-05-02] MEDS ORDERED: DEXAMETHASONE 10 MG/ML VIAL PO STA (14:36)
[2022-05-02] MEDS ORDERED: CHERRY SYRUP 10 ML UDC PO ONE (14:36)
--- NOTE | 2022-05-02 14:42 | ED Physician Documentation ---
History of Present Illness - Stated complaint Stated Complaint: NECK PX - Chief complaint Chief Complaint: Neuro - History obtained from History obtained from: Patient - History of Present Illness Timing: Today, How many days ago (1) Pain level max: 8 Pain level now: 0 - Additonal information Additional information: Patient is a 66-year-old female who presents to the emergency department with sharp shooting pain to the right side of the head. This started today. Has a history of cervical spine slipped disks and radiculopathy. She states that the pain starts at the base of her neck and shoots up the right occiput towards the right side of her head. Lasted for 1 to 2 seconds at a time and then resolves. No rash. No itching. Nothing seems to make it better or worse. 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 - Present Medications Home Medications: Ambulatory Orders Medication Instructions Recorded Confirmed Acetaminophen [Tylenol] 650 mg PO TID PRN 01/28/18 05/12/21 Levothyroxine Sodium 150 mcg PO DAILY 01/28/18 05/12/21 Nystatin 1 applic TOP DAILY PRN 01/28/18 05/12/21 lisinopriL [Lisinopril] 20 mg PO DAILY 01/28/18 05/12/21 Albuterol Sulf [Ventolin Hfa 2 puffs INH Q6H PRN 02/15/18 05/12/21 Inhaler] Albuterol Sulf [Ventolin Hfa 1 - 2 puffs INH Q4HR PRN 05/12/21 05/12/21 Inhaler] Amitriptyline [Elavil] 10 mg PO QPM 05/12/21 05/12/21 Atorvastatin Calcium 40 mg PO QPM 05/12/21 05/12/21 Celecoxib [Celebrex] 200 mg PO DAILY 05/12/21 05/12/21 Cholecalciferol [Vitamin D3] 25 mcg PO DAILY 05/12/21 05/12/21 Fluticasone [Flonase] 1 sprays BLANCO BID PRN 05/12/21 05/12/21 Gabapentin [Neurontin] 300 mg PO HS 05/12/21 05/12/21 Glimepiride [Amaryl] 2 mg PO 0800 05/12/21 05/12/21 metFORMIN [Glucophage] 1,000 mg PO BIDWM 05/12/21 05/12/21 Amox/Clav 875/125 [Augmentin] 1 each PO Q8H #30 tablet 09/28/21 Ondansetron Odt [Zofran] 4 mg TL Q6H PRN #10 tablet 09/28/21 Oxycodone HCl/Acetaminophen 1 - 2 each PO Q6H PRN #14 tablet 09/28/21 [Percocet 5-325 mg Tablet] Meloxicam [Mobic] 7.5 mg PO BID PRN #20 tablet 05/02/22 Valacyclovir HCl [Valtrex] 1,000 mg PO TID #21 tablet 05/02/22 predniSONE [Deltasone] 10 mg PO [id number] #42 tab 05/02/22 - Allergies Allergies/Adverse Reactions: Allergies Allergy/AdvReac Type Severity Reaction Status Date / Time wool AdvReac Itching Verified 05/02/22 13:08 - Social History Does the pt smoke?: Yes Smoking Status: Current every day smoker Does the pt drink ETOH?: Yes Does the pt have substance abuse?: No - Immunizations Immunizations are current?: Yes - POLST Patient has POLST: No POLST Status: Full Code (Pt said that she has a lot to live for and is "only 62 years old", she wants to make a lot of changes in her life (starting with qu itting smoking), no POLST currently, but would want daughter to make decisions for her if necessary, pt encouraged to fill out POLST before leaving hospital or with PCP in the future) PD ED PE NORMAL - Vitals Vital signs reviewed: Yes - General General: Alert and oriented X 3, No acute distress, Well developed/nourished - HEENT HEENT: Atraumatic, PERRL, Ears normal, Moist mucous membranes, Other (No temporal artery tenderness. No skin tenderness) - Neck Neck: Supple, no meningeal sign, No bony TTP, Other (Positive Spurling test to the right) - Cardiac Cardiac: RRR, Strong equal pulses - Respiratory Respiratory: No respiratory distress, Clear bilaterally - Abdomen Abdomen: Soft, Non tender, Non distended - Derm Derm: Warm and dry - Neuro Neuro: Alert and oriented X 3, business reporter 2-12 intact, No motor deficit, No sensory deficit, Normal speech Eye Opening: Spontaneous Motor: Obeys Commands Verbal: Oriented GCS Score: 15 - Psych Psych: Normal mood, Normal affect Results - Vitals Vitals: Vital Signs - 24 hr 05/02/22 13:02 Temperature 36.1 C L Heart Rate 71 Respiratory 16 Rate Blood Pressure 149/70 H O2 Saturation 96 Oxygen O2 Source Room air PD MEDICAL DECISION MAKING - ED course Complexity details: considered differential, d/w patient ED course: Patient presents to the emergency department with what appears to be nerve pain on the right side of her head. These are sharp lancinating episodes. They last for less than 1 second at a time. They occur every 10 to 15 minutes. She does not have any scalp tenderness. No tenderness over the temporal artery. No evidence of temporal arteritis. No indication for emergent neuroimaging. She does have degenerative disc disease and multiple "slipped disks" in her neck per the patient. Possible that this is coming from her neck causing the radicular symptoms. We will place her on anti-inflammatory medication and steroids. We will also place her on valacyclovir in case this could be an early shingles presentation. Patient counseled regarding signs and symptoms for which I believe and urgent re-evaluation would be necessary. Patient with good understanding of and agreement to plan and is comfortable going home at this time This document was made in part using voice recognition software. While efforts are made to proofread this document, sound alike and grammatical errors may occur. No evidence of aneurysm, intracranial hemorrhage, tumor or any condition that would require emergent neuroimaging Departure - Departure Disposition: 01 Home, Self Care Clinical Impression: Cervical radiculopathy Cephalgia Qualifiers: Headache type: unspecified Headache chronicity pattern: acute headache Intractability: not intractable Qualified Code(s): R51.9 - Headache, unspecified Condition: Good Instructions: ED Cephalgia Unspecified, ED Cervical Radiculopathy Follow-Up: your,doctor in 1 week [Other] Prescriptions: predniSONE [Deltasone] 10 mg PO [id number] #42 tab Meloxicam [Mobic] 7.5 mg PO BID PRN #20 tablet PRN Reason: Pain Valacyclovir HCl [Valtrex] 1,000 mg PO TID #21 tablet Comments: Please follow-up with your doctor for further care. Please return if you worsen. [facility] prescriptions [facility] in [place]. As we discussed, this is likely due to a nerve in your neck being inflamed, however it could be due to something such as shingles, and the rash may develop over the next 24 to 48 hours. Discharge Date/Time: 05/02/22 15:27
== END 2022-05-02 15:27 | disposition home or self-care (01) ==
LOC: ED 12:50
DX: M50.10 Cervical disc disorder with radiculopathy, unspecified cervical region (principal); R51.9 Headache, unspecified; I10 Essential (primary) hypertension; E11.9 Type 2 diabetes mellitus without complications; Z79.84 Long term (current) use of oral hypoglycemic drugs; J44.9 Chronic obstructive pulmonary disease, unspecified; F17.200 Nicotine dependence, unspecified, uncomplicated; Z79.899 Other long term (current) drug therapy
CPT/HCPCS: 99283; A9270

== ENCOUNTER 2022-06-13 11:02 | Outpatient (CLI) | payer MEDICARE, MEDICAID ==
[2022-06-13 11:50] VITALS: BP 118/76
--- NOTE | 2022-06-13 11:50 | SLEEP CARE CONSULTATION ---
Information from patient questionnaire entered by Hardik Alejandra. I have reviewed and concur with the information entered by Hardik Alejandra. This document represents the service I personally performed and the decisions made by me, Sindi Howard ARNP. History of Present Illness Service Date and Time: 06/13/2022 1102 Previous diagnosis: Mild, Obstructive Sleep Apnea-Hypopnea Syndrome AHI: 11.9 (in 2018) Reason for follow up: annual (LAST SEEN 08/2020) Equipment type: CPAP (Dreamstation (on recall)) Equipment obtained from: [facility] (getting supplies as needed) Mask style: Nasal Mask brand: Respironics (Dreamwear) Backup mask available: Yes (old mask) Last cushion change: 1 week Prior sleep studies: Yes Year and Where: 2018 - [facility] HPI additional information: TITI DANIEL was diagnosed to have mild, AHI 11.9, obstructive sleep apnea-hypopnea syndrome and returned today for CPAP therapy annual follow-up. Sleep Study - Results Prior sleep studies: Yes Year and Where: 2018 - [facility] CPAP Compliance Data - Data Reviewed with Patient Average duration of nightly device use: 7 hours 2 mins Compliance rate %: 88.9 (164/180 days used) Current pressure setting (cmH2O): 4-8 Average residual AHI: 2.3 Central apnea: 0 Obstructive apnea: 0.5 Average large leak: 5 mins 18 secs Subjective Patient concerns: reports: other (headache from mask resting on her head; nasal pain from air in nostrils - occasional). denies: aerophagia, mask discomfort, air blowing in eyes, mask leak noise, condensation in mask/hose, nasal congestion, dry mouth, nose, throat, epistaxis Observed to snore while using device: No Current pressure setting perceived as: comfortable On therapy, patient: reports: sleeping better, awakening more refreshed, being more awake and alert during the day, more rested overall. denies: drowsiness while driving Initial [place] Sleepiness Scale score: 11 (in 2018) Current [place] Sleepiness Scale score: 7 (06/13/22) Allergies and Home Medications Drug allergies reviewed: Yes (wool) Home medication list reviewed: Yes (no changes) Review of Systems Review of systems same as previous: Yes (Bulging discs in C5-C7) Physical Exam Vital signs obtained and entered by: HARDIK Camacho MA Blood Pressure: 118/76 (LEFT ARM) Cuff size: long Heart Rate: 77 O2 Saturation: 96 Height: 5 ft 2 in Weight: 218 lb Body Mass Index: 39.9 BMI Classification: Obese Impression and Plan 1. Obstructive Sleep Apnea-Hypopnea Syndrome, mild, with good treatment compliance and good apnea control. On CPAP therapy, the patient has better sleep quality and is more rested overall. Patient states she is having issue with her mask. She is using a Dreamwear nasal cushion mask. She states she has used this mask since she started using the CPAP but with recent supplies she is getting headaches from wearing her mask/headgear. She states anywhere the mask touches on her head will hurt. She has to wear her handkerchief over her hair and this will reduce headache occurrence. She states the only difference is the arm extenders on side of headgear. She has been diagnosed with C5-C7 bulging discs in her neck and the headgear extenders come to the top of her neck. I will write for a mask refitting to see if there is a different option that would not put any pressure on her neck, as this may be causing the headaches. Patient's apnea severity and rationale for treatment to reduce apnea, improve sleep quality and reduce cardiovascular and cerebrovascular events was reviewed. I also reviewed the benefit of consistent device use of CPAP for hypertension and diabetes. 2. Obesity, unspecified. Currently patients BMI is 39.9. Patient has lost weight. She is watching her carbs in her diet. Obesity increases the risk of apnea, CPAP pressure requirements and overall health risks especially cardiovascular and diabetes. Thus patient is advised to lose weight. * Continue auto CPAP pressure at 4-8 cmH2O * Mask refitting * Update supplies * Notify me if snoring with mask or feeling that the pressure is too much or too little * Attempt to lose weight * Call this office if any problems using CPAP * Return for follow up in 1 year, or sooner if concerns arise Counseling Topics: Spare mask, Weight loss health impact Visit Type: In Office Time Spent with Patient (minutes): 23 Provider Statement: I spent 100% of the Face to Face Visit with the patient with greater than 50% spent counseling the patient and coordination of care.
== END 2022-06-13 11:03 | disposition home or self-care (01) ==
LOC: SC 11:02
PROVIDERS: ATTEND Nurse Practitioner Family
DX: G47.33 Obstructive sleep apnea (adult) (pediatric) (principal); E66.9 Obesity, unspecified; Z68.39 Body mass index [BMI] 39.0-39.9, adult
CPT/HCPCS: 99213; G0463; 99212

== ENCOUNTER 2022-08-25 12:25 | Outpatient (CLI) | payer MEDICARE, MEDICAID ==
--- NOTE | 2022-08-25 17:08 | XRAY Report ---
PROCEDURE: Chest 2 View X-Ray INDICATIONS: COPD TECHNIQUE: 2 views of the chest were acquired. COMPARISON: Chest radiographs 02/14/2018 FINDINGS: Surgical changes and devices: None. Lungs and pleura: No pleural effusions or pneumothorax. Minimal platelike opacities right mid and lo wer lung. Mediastinum: Mediastinal contours are normal. Heart size is normal. Bones and chest wall: No suspicious bony abnormalities. Soft tissues appear unremarkable. IMPRESSION: Minimal opacities at the left mid and lower lung may represent scarring and/or atelectasis but aspira tion or pneumonia are difficult to exclude. Reviewed by: Markus Ag MD on 08/25/2022 5:07 PM PST Approved by: Markus Ag MD on 08/25/2022 5:07 PM PST Station ID: [id number]
== END 2022-08-25 12:26 | disposition home or self-care (01) ==
LOC: DI 12:25
PROVIDERS: ATTEND Nurse Practitioner Family
DX: J44.1 Chronic obstructive pulmonary disease with (acute) exacerbation (principal)

== ENCOUNTER 2023-10-01 11:00 | Outpatient (CLI) | payer MEDICARE, MEDICAID | END 2023-10-01 11:15 | disposition home or self-care (01) | LOC: LAB.N 11:00 | PROVIDERS: ATTEND Registered Nurse | DX: R39.9 Unspecified symptoms and signs involving the genitourinary system (principal) | CPT/HCPCS: 87086 ==

== ENCOUNTER 2024-02-21 10:25 | Outpatient (CLI) | payer MEDICARE, MEDICAID ==
--- NOTE | 2024-02-21 11:03 | Sleep Patient Instructions ---
Sleep Center Visit Summary - Patient Visit Information Reason for Visit: Annual follow-up - Patient Instructions Additional Instructions: You will continue with CPAP therapy with pressure set at 4-8 cmH2O. A supply prescription will be updated with your DME. We encourage you to continue to try to lose weight. Please follow up with the sleep care office in 1 year. - Clinic Information Contact: [facility] [address] [place] [address] [email or web address] T: [phone]
--- NOTE | 2024-02-21 11:06 | SLEEP CARE CONSULTATION ---
Information from patient questionnaire entered by Nanci Alejandra. I have reviewed and concur with the information entered by Nanci Alejandra. This document represents the service I personally performed and the decisions made by me, Sindi Howard ARNP. History of Present Illness Service Date and Time: 02/21/2024 1025 Previous diagnosis: Mild, Obstructive Sleep Apnea-Hypopnea Syndrome AHI: 11.9 (in 2018) Reason for follow up: annual (LAST SEEN 05/2022) Accompanied by: BASSAM Castellon Equipment type: CPAP (Dreamstation 2) Equipment obtained from: [facility] (getting supplies as needed) Mask style: Nasal Mask brand: Respironics (Dreamwear) Backup mask available: No Last cushion change: 2 weeks Prior sleep studies: Yes Year and Where: 2018 - [facility] HPI additional information: TITI DANIEL was diagnosed to have mild, AHI 11.9, obstructive sleep apnea-hypopnea syndrome and returned today for CPAP therapy annual follow-up. Sleep Study - Results Prior sleep studies: Yes Year and Where: 2018 [facility] Compliance Data - Data Reviewed with Patient Average duration of nightly device use: 6 HRS 37 MINS 19 SECS Compliance rate %: 95.6 (02/18/23-02/17/24; 365/365 days used) Current pressure setting (cmH2O): 4-8 Average residual AHI: 3.0 Central apnea: 0.1 Obstructive apnea: 0.8 Hypopnea: 2.1 Average large leak: 4 mins 29 secs Subjective Patient concerns: reports: dry mouth, nose, throat (always, all day). denies: aerophagia, mask discomfort, air blowing in eyes, mask leak noise, condensation in mask/hose, nasal congestion, epistaxis Observed to snore while using device: No Current pressure setting perceived as: comfortable On therapy, patient: reports: sleeping better, awakening more refreshed, being more awake and alert during the day, more rested overall. denies: drowsiness while driving (does not drive) Initial [place] Sleepiness Scale score: 11 (in 2017) Current [place] Sleepiness Scale score: 10 (02/21/24) Allergies and Home Medications Known drug allergies: No Drug allergies reviewed: Yes Home medication list reviewed: Yes (Duloxetine for chronic pain; helps to her to sleep) Allergy and home medication list: Allergies wool Adverse Reaction (Verified 02/21/24 10:29) Itching Review of Systems Review of systems same as previous: Yes (NO CHANGE) Physical Exam Vital signs obtained and entered by: NANCI Camacho MA Blood Pressure: 150/80 (LEFT ARM) Cuff size: long Heart Rate: 65 O2 Saturation: 98 Height: 5 ft 2 in Weight: 212 lb 9.6 oz Body Mass Index: 38.9 BMI Classification: Obese Impression and Plan 1. Obstructive Sleep Apnea-Hypopnea Syndrome, mild, with good treatment compliance and good apnea control. On CPAP therapy, the patient has better sleep quality and is more rested overall. She has significant improvement of her sleep apnea and is satisfied with current CPAP therapy. She states she has chronic oral dryness that lasts all day. She has no other concerns or issues with her CPAP use. I will update her supply prescription and follow-up with her next year. Patient's apnea severity and rationale for treatment to reduce apnea, improve sleep quality and reduce cardiovascular and cerebrovascular events was reviewed. I also reviewed the benefit of consistent device use of CPAP for hypertension, diabetes. 2. Obesity, unspecified. Currently patients BMI is 38.9. Obesity increases the risk of apnea, CPAP pressure requirements and overall health risks especially cardiovascular and diabetes. Thus patient is advised to continue to try to lose weight. * Continue auto CPAP pressure at 4-8 cmH2O * Update supply prescription * Notify me if snoring with mask or feeling that the pressure is too much or too little * Attempt to lose weight * Call this office if any problems using CPAP * Return for follow up in 12 months, or sooner if concerns arise Counseling Topics: Spare mask, Weight loss health impact Prescriptions: Device supplies Follow up with Sleep Care in: 1 year Visit Type: In Office Time Spent with Patient (minutes): 20 Provider Statement: I spent 100% of the Face to Face Visit with the patient with greater than 50% spent counseling the patient and coordination of care.
[2024-02-21 11:09] VITALS: BP 150/80; O2SAT 98
== END 2024-02-21 10:26 | disposition home or self-care (01) ==
LOC: SC 10:25
PROVIDERS: ATTEND Nurse Practitioner Family
DX: G47.33 Obstructive sleep apnea (adult) (pediatric) (principal); E66.9 Obesity, unspecified; Z68.38 Body mass index [BMI] 38.0-38.9, adult
CPT/HCPCS: 99213; G0463; 99212